=== PATIENT | female | born 1930 | race Caucasian/White ===

== ENCOUNTER 2018-03-08 18:53 | Inpatient (IN) | payer OTHER, BC ==
--- NOTE | 2018-03-08 18:59 | PDOC ---
History of Present Illness - General Chief Complaint: Respiratory Distress Stated Complaint: SICK Time Seen by Provider: 03/08/18 18:56 - History of Present Illness Initial Comments: 03/08/18 21:39 88 yo F w a hx of AFIb, HTN, hypothyroidism was sent here from [facility] with SOB. Per EMS - she was satting at 65% when they first arrived. EMS put her in CPAP and when she came into the ED her Sat was up to 90% . She was immediately placed on Bipap. Her Sat went up to 100% within the first half hour she was here. She says she does not know what happened to her she just became short of breath this morning. She endorses a recent cough for the past two days productive of whitish sputum. She denies any recent fevers, chills, or infections. She denies any chest pain, palpitations or lightheadedness. She denies any dysuria, frequency, urgency, or hesitancy. 03/08/18 21:44 Past History - Past Medical History Allergies/Adverse Reactions: Allergies Allergy/AdvReac Type Severity Reaction Status Date / Time No Known Allergies Allergy Verified 03/08/18 18:55 Home Medications: Ambulatory Orders Acetaminophen 650 mg PO QID PRN 03/08/18 Amlodipine Besylate [Norvasc -] 5 mg PO DAILY 03/08/18 Ascorbate Calcium [Vitamin C] 500 mg PO DAILY 03/08/18 Aspirin 81 mg PO DAILY 03/08/18 Cholecalciferol (Vitamin D3) [Vitamin D3] 1,000 unit PO DAILY 03/08/18 Levothyroxine [Synthroid -] 25 mcg PO DAILY 03/08/18 Lorazepam 0.5 mg PO BID 03/08/18 Losartan Potassium [Cozaar] 100 mg PO DAILY 03/08/18 Metoprolol Tartrate [Lopressor] 100 mg PO DAILY 03/08/18 Mirtazapine 7.5 mg PO HS 03/08/18 Multivitamin [One Daily] 1 tab PO DAILY 03/08/18 Vit A/Vitamin D3/E/Aloe V/Zinc [Periguard Ointment] 100 gm TP BID 03/08/18 Zolpidem Tartrate [Ambien] 5 mg PO HS 03/08/18 Review of Systems - Review of Systems Comments:: 03/08/18 21:47 RESPIRATORY: Positive: Productive cough, shortness of breath Absent: dyspnea with exertion, orthopnea, wheezing, stridor, hemoptysis CONSTITUTIONAL: Absent: fever, chills, diaphoresis, generalized weakness, malaise, loss of appetite HEENT: Absent: rhinorrhea, nasal congestion, throat pain, throat swelling, difficulty swallowing, mouth swelling, ear pain, eye pain, visual Changes CARDIOVASCULAR: Absent: chest pain, syncope, palpitations, irregular heart rate, lightheadedness , peripheral edema GASTROINTESTINAL: Absent: abdominal pain, abdominal distension, nausea, vomiting, diarrhea, constipation, melena, hematochezia GENITOURINARY: Absent: dysuria, frequency, urgency, hesitancy, hematuria, flank pain, genital pain MUSCULOSKELETAL: Absent: myalgia, arthralgia, joint swelling SKIN: Absent: rash, itching, pallor HEMATOLOGIC/IMMUNOLOGIC: Absent: easy bleeding, easy bruising, lymphadenopathy, frequent infections ENDOCRINE: Absent: unexplained weight gain, unexplained weight loss, heat intolerance, cold intolerance NEUROLOGIC: Absent: headache, focal weakness or paresthesias, dizziness, unsteady gait, seizure, mental status changes, bladder or bowel incontinence PSYCHIATRIC: Absent: anxiety, depression, suicidal or homicidal ideation, hallucinations. *Physical Exam - Physical Exam Comments: 03/08/18 21:48 PULMONARY: On presentation the patient had diffuse rales throughout both lung tai. 2 hours later I appreciated crackles on the R middle and lower lobes. No wheezing or rhonchi. GENERAL: Patient is awake and alert but in significant respiratory distress, HEENT: Normocephalic, atraumatic. PERRLA, EOMI. No conjunctival pallor. Sclera are non- icteric. Moist mucous membranes. Oropharynx is clear. NECK: Supple. Full ROM. No JVD. No thyromegaly. No lymphadenopathy. CARDIOVASCULAR: Regular rate and rhythm. No murmurs, rubs, or gallops. Distal pulses are 2+ and symmetric. ABDOMINAL: Soft. Non-tender. Non-distended. No rebound or guarding. No organomegaly. Normoactive bowel sounds. MUSCULOSKELETAL Normal range of motion at all joints. No bony deformities or tenderness. No CVA tenderness. EXTREMITIES: No cyanosis. No clubbing. No edema. No calf tenderness. SKIN: Warm and dry. Normal capillary refill. No rashes. No jaundice. NEUROLOGICAL: Alert, awake, appropriate. Cranial nerves 2-12 intact. Normal speech. PSYCHIATRIC: Cooperative. Good eye contact. Appropriate mood and affect. ED Treatment Course - LABORATORY CBC & Chemistry Diagram: 03/08/18 19:05 03/08/18 19:05 Medical Decision Making - Medical Decision Making 03/08/18 21:51 88 yo F w a hx of AFIb, HTN, hypothyroidism presented with significant respiratory distress. originally satted at 65% - went up to 90% with CPAP then up to 100% on bipap in the ER. She received 1 duo neb in the ER. White count is elevated to 23.5. trop is elevated to 1.11 We suspect she has a R sided PNA. Starting her on Abx here in the ER. Also gave her 20 of lasix DD includes but not limited to: CHF, ACS, COPD, PNA Plan: EKG, ABG, re-assess. Patient will be admitted 03/08/18 21:54 03/08/18 21:56 *DC/Admit/Observation/Transfer Diagnosis at time of Disposition: Pneumonia - Discharge Dispostion Condition at time of disposition: Guarded Decision to Admit order: Yes - Referrals Referrals: Steff Nation MD [Primary Care Provider] - - Patient Instructions - Post Discharge Activity
--- NOTE | 2018-03-08 19:06 | PDOC ---
Attending Attestation - Resident Resident Name: JanuarykrystleCarlosEndy - ED Attending Attestation I have performed the following: I have examined & evaluated the patient, The case was reviewed & discussed with the resident, I agree w/resident's findings & plan, Exceptions are as noted - HPI HPI: 03/08/18 19:06 Agree with residents HPI - Physicial Exam PE: 03/08/18 19:06 Agree with residents PE - Medical Decision Making 03/08/18 19:44 88 years old past medical history history significant for CVA, A. fib, hypertension presents to the emergency department from senior living in respiratory distress. Upon EMS arrival patient was satting 65 presents started on CPAP History Limited secondary to respiratory distress patient is DNR/DNI. Patient started on BiPAP upon arrival oxygenation has improved to 90%. Sepsis workup initiated chest x-ray pending dual nebs ordered Based on chest x-ray results further management required physical examination consistent with rales bilaterally differential diagnosis includes CHF as pneumonia Dr. Gutierrez to follow up labs, xrays, reasses, and dispo
[2018-03-08] MEDS ORDERED: ALBUTEROL SO4 2.5/IPRATROPIUM 0.5 INH SOL 3 ML VIAL.NEB. NEB ONE ×2 (19:18→19:36)
[2018-03-08 19:19] VITALS: BMI 18.8
[2018-03-08 19:27] LABS: BASO % 1.4 % (0-2.0); EOS % 3.2 % (0-4.5); HEMATOCRIT 45.5 % (32.4-45.2); HEMOGLOBIN 14.9 GM/dL (10.7-15.3); LYMPH % 22.8 % (8-40); MCH 34.2 pg (25.7-33.7); MCHC 32.7 g/dl (32.0-36.0); MEAN CELL VOLUME 104.8 fl (80-96); MEAN PLT VOLUME 8.2 fl (7.5-11.1); MONO % 3.8 % (3.8-10.2); NEUT % 68.8 % (42.8-82.8); RBC 4.35 M/mm3 (3.60-5.2); RDW 14.7 % (11.6-15.6); WHITE BLOOD COUNT 23.5 K/mm3 (4.0-10.0)
[2018-03-08 20:04] LABS: INR 1.11 (0.83-1.09); PROTHROMBIN TIME (PATIENT) 12.5 SEC (9.7-13.0)
[2018-03-08 20:07] LABS: ACTIVATED PTT 37.3 SECONDS (25.2-36.5)
[2018-03-08 20:11] LABS: ALBUMIN 3.7 g/dl (3.4-5.0); ANION GAP 11 MMOL/L (8-16); BLOOD UREA NITROGEN 20 mg/dL (7-18); CALCIUM 8.7 mg/dL (8.5-10.1); CHLORIDE 104 mmol/L (98-107); CO2 23 mmol/L (21-32); GLUCOSE,RANDOM 228 mg/dL (74-106); POTASSIUM 5.6 mmol/L (3.5-5.1); SGOT/AST 37 U/L (15-37); SODIUM 138 mmol/L (136-145)
[2018-03-08 20:18] LABS: ALK PHOS 135 U/L (45-117); BILIRUBIN,TOTAL 0.5 mg/dL (0.2-1.0); SGPT/ALT 23 U/L (13-61); TOT PROT 7.4 g/dl (6.4-8.2)
[2018-03-08] MEDS ORDERED: FUROSEMIDE 40 MG/4 ML INJECTABLE VIAL IVPUSH ONE (20:20)
[2018-03-08] MEDS ORDERED: VANCOMYCIN 1,250 MG in DEXTROSE 5%-WATER - 250 ML IVPB ONE (20:20)
[2018-03-08] MEDS ORDERED: ASPIRIN 81 MG CHEWABLE TABLETS PO ONE (20:22)
[2018-03-08] MEDS ORDERED: PIPERACILLIN/TAZOB 2.25 GM 2.25 GM in DEXTROSE 5%-WATER - 50 ML IVPB ONE (20:22)
[2018-03-08] MEDS ORDERED: PIPERACILLIN/TAZOBACTAM 2.25 GM VIAL IVPB ONE (20:39)
[2018-03-08] MEDS ORDERED: FUROSEMIDE 40 MG/4 ML INJECTABLE VIAL ONE (20:40)
[2018-03-08] MEDS ORDERED: ASPIRIN 81 MG CHEWABLE TABLETS ONE (20:40)
--- NOTE | 2018-03-08 20:51 | PN ---
Teaching Attending Note Name of Resident: Shari Strickland ATTENDING PHYSICIAN STATEMENT I saw and evaluated the patient. I reviewed the resident's note and discussed the case with the resident. I agree with the resident's findings and plan as documented. SUBJECTIVE: Patient is an 88 year old [facility] resident with past medical history history significant for CVA, polycythemia vera, A. fib and hypertension who presents to the ER with respiratory distress. Upon EMS arrival patient's O2 saturation was 65% and she was on CPAP. Patient started on BiPAP upon arrival in the ER and oxygenation has improved to 90%. She also noted left leg swelling that started 2 days ago. OBJECTIVE: In respiratory distress Vital Signs Period Temp Pulse Resp BP Sys/Stephens Pulse Ox Last 24 Hr 70-89 22-30 144-150/100-118 99-100 HEENT: No Jaundice, eye redness or discharge, PERRLA, EOMI. Normocephalic, atraumatic. External ears are normal and hearing is grossly intact. No nasal discharge. Neck: Supple, nontender. No palpable adenopathy or thyromegaly. No JVD Chest: Good effort. Coarse bibasilar crackles (R>L). Heart: Regular. No S3, rub or murmur Abdomen: Not distended, soft, nontender and no HSM. No rebound or guarding. Normoactive bowel sounds. Ext: Peripheral pulses intact. Left leg edema. Skin: Warm and dry. No petechiae or rash. Leg and arm ecchymosis. Neuro: Alert. Oriented x3. CN 2-12 grossly intact. Sensation grossly intact in all four extremities and DTR are symmetric. Current Medications Generic Name Dose Route Start Last Admin Trade Name Freq PRN Reason Stop Dose Admin Vancomycin HCl 1,250 mg/ 250 mls @ 250 mls/2 hr 03/08/18 20:20 Dextrose IVPB 03/08/18 22:19 ONCE ONE Protocol Piperacillin Sod/Tazobactam 50 mls @ 100 mls/hr 03/08/18 20:22 Sod 2.25 gm/ Dextrose IVPB 03/08/18 20:51 ONCE ONE Protocol Home Medications Medication Instructions Recorded Acetaminophen 650 mg PO QID PRN 03/08/18 Amlodipine Besylate [Norvasc -] 5 mg PO DAILY 03/08/18 Ascorbate Calcium [Vitamin C] 500 mg PO DAILY 03/08/18 Aspirin 81 mg PO DAILY 03/08/18 Cholecalciferol (Vitamin D3) 1,000 unit PO DAILY 03/08/18 [Vitamin D3] Levothyroxine [Synthroid -] 25 mcg PO DAILY 03/08/18 Lorazepam 0.5 mg PO BID 03/08/18 Losartan Potassium [Cozaar] 100 mg PO DAILY 03/08/18 Metoprolol Tartrate [Lopressor] 100 mg PO DAILY 03/08/18 Mirtazapine 7.5 mg PO HS 03/08/18 Multivitamin [One Daily] 1 tab PO DAILY 03/08/18 Vit A/Vitamin D3/E/Aloe V/Zinc 100 gm TP BID 03/08/18 [Periguard Ointment] Zolpidem Tartrate [Ambien] 5 mg PO HS 03/08/18 Abnormal Lab Results 03/08/18 03/08/18 03/08/18 19:05 19:05 19:05 WBC 23.5 H Hct 45.5 H MCV 104.8 H MCH 34.2 H Plt Count 927 H Absolute Neuts (auto) 16.1 H INR 1.11 H PTT (Actin FS) 37.3 H Potassium 5.6 H BUN 20 H Random Glucose 228 H Lactic Acid Alkaline Phosphatase 135 H Troponin I 03/08/18 03/08/18 19:05 19:06 WBC Hct MCV MCH Plt Count Absolute Neuts (auto) INR PTT (Actin FS) Potassium BUN Random Glucose Lactic Acid 3.7 H* Alkaline Phosphatase Troponin I 1.11 H* ASSESSMENT AND PLAN: 1. Sepsis due to ?atypical pneumonia - Sepsis workup done but UA still pending. Will get urine legionella antigen and trend lactic acid level. Treat possible HCAP with Vancomycin, zosyn and azithromycin. CXR shows rotation/scoliosis; osteopenia, cardiomegaly, poor inspiration, cardiomegaly, pacemaker, and pulmonary congestion. Withhold aggressive IV NS or lasix pending ECHO. Get CTPA to rule out PE, left leg doppler. Elevated troponin with nonspecific T wave changes - rule out ACS on telemetry - ?led to flash pulmonary edema. Consult hematology - thrombocytosis - has polycythemia vera. Hyperkalemia likely spurious due to thrombocytosis - get simultaneous serum and "plasma" K level to confirm. Check with NH whether she is on any medication for DM - implement sliding scale insulin regimen. Unclear why she is not on any anticoagulation for paroxysmal Afib. 2. DVT prophylaxis - Lovenox 40 mg SQ q 24 hours. 3. Advance directives - DNR/DNI
[2018-03-08 21:52] LABS: ANISOCYTOSIS 1+; MACROCYTOSIS 1+; PLATELET ESTIMATE SIGNIFICANT INCREASE
[2018-03-08 21:55] LABS: PLATELET COUNT 927 K/MM3 (134-434)
[2018-03-08 22:04] LABS: ARTERIAL BLD GAS O2 SATURATION 96.4 % (90-98.9); ARTERIAL BLOOD GAS BASE EXCESS 0.7 meq/l (-2-2); ARTERIAL BLOOD GAS PCO2 45.6 mmHg (35-45); ARTERIAL BLOOD GAS PO2 87.4 mmHg (68-100); ARTERIAL BLOOD GAS pH 7.37 (7.35-7.45); CARBOXYHEMOGLOBIN 1.6 gm% (0.5-2.0)
[2018-03-08 22:05] LABS: ALLENS TEST POSITIVE
[2018-03-09 00:33] LABS: URINE APPEARANCE CLEAR; URINE BILIRUBIN NEGATIVE (<2.0 mg/dL); URINE COLOR STRAW; URINE GLUCOSE (UA) NEGATIVE (NEGATIVE); URINE KETONE NEGATIVE (NEGATIVE); URINE LEUK ESTERASE NEGATIVE (NEGATIVE); URINE NITRITE NEGATIVE (NEGATIVE); URINE PROTEIN NEGATIVE (NEGATIVE); URINE UROBILINOGEN NEGATIVE mg/dL (0.2-1.0)
--- NOTE | 2018-03-09 00:43 | HP ---
CHIEF COMPLAINT: SOB SON: Eduardo Lowe [phone] PCP: Dr. Damian HISTORY OF PRESENT ILLNESS: 88 y/o Female resident of [facility], with PMHx of AFib, HTN, PVD, Cerebral infarction (patient is unsure when) was BIBEMS for SOB. Patient woke this morning feeling her normal self, without any noticeable over night events. Patient was able to tolerate her morning meal without difficult. At some point during the morning hours, patient started to feel shortness of breath. She noticed the SOB while sitting down but is not sure if it came on all of a sudden or if it was progressive. This is the first time she has felt SOB; She normally ambulates around the home and does not experience any dyspnea or exertion. Throughout the day, the SOB continued to worsen and patient additionally experienced a cough productive of clear/white phlegm which prompted her to visit the ED. Patient is normally able to sleep lying flat, does not require home O2 and does not wear a bipap/cpap at night. She denies any recent fevers, chills, chest pain/tightness/pressure, nausea, vomiting, diarrhea. Patient has a hx of chronic constipation. She denies any other sick contacts at the long term. She does not recall any recent medication changes, recent steroid use and has not visited her PCP in many months. I spoke with her Evening nurse Eduardo at [facility] who says the patient had some weakness with maneuvering her wheelchair around 6pm this evening. When he went to help the patient, she was cool, clammy, and a bit confused not making sense with her speech. Vitals at that time were 180/107, HR 80, O2 sats at 64%. He believed it was in part due to a possible panic attack, as patient missed her morning dose of Ativan however the ovens supervisor decided to send her to the ED. 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 PAST SURGICAL HISTORY: Appendix Cardiac pacemaker placement Social History: Smoking: Denies currently; for < 1 year in her 20's Alcohol: Denies currently; Occasionally in her 20's Drugs: Denies Family History: Denies Allergies No Known Allergies Allergy (Verified 03/08/18 18:55) HOME MEDICATIONS: Home Medications Medication Instructions Recorded Acetaminophen 650 mg PO QID PRN 03/08/18 Amlodipine Besylate [Norvasc -] 5 mg PO DAILY 03/08/18 Ascorbate Calcium [Vitamin C] 500 mg PO DAILY 03/08/18 Aspirin 81 mg PO DAILY 03/08/18 Cholecalciferol (Vitamin D3) 1,000 unit PO DAILY 03/08/18 [Vitamin D3] Levothyroxine [Synthroid -] 25 mcg PO DAILY 03/08/18 Lorazepam 0.5 mg PO BID 03/08/18 Losartan Potassium [Cozaar] 100 mg PO DAILY 03/08/18 Metoprolol Tartrate [Lopressor] 100 mg PO DAILY 03/08/18 Mirtazapine 7.5 mg PO HS 03/08/18 Multivitamin [One Daily] 1 tab PO DAILY 03/08/18 Vit A/Vitamin D3/E/Aloe V/Zinc 100 gm TP BID 03/08/18 [Periguard Ointment] Zolpidem Tartrate [Ambien] 5 mg PO HS 03/08/18 REVIEW OF SYSTEMS CONSTITUTIONAL: Absent: fever, chills, diaphoresis, generalized weakness, malaise, loss of appetite, weight change HEENT: Absent: rhinorrhea, nasal congestion, throat pain, throat swelling, difficulty swallowing, mouth swelling, ear pain, eye pain, visual changes CARDIOVASCULAR: Present: peripheral edema Absent: chest pain, syncope, palpitations, irregular heart rate, lightheadedness RESPIRATORY: Present: cough, shortness of breath, Absent: dyspnea with exertion, orthopnea, wheezing, stridor, hemoptysis GASTROINTESTINAL: Present: chronic constipation, Absent: abdominal pain, abdominal distension, nausea, vomiting, diarrhea, melena , hematochezia GENITOURINARY: Absent: dysuria, frequency, urgency, hesitancy, hematuria, flank pain, genital pain MUSCULOSKELETAL: Absent: myalgia, arthralgia, joint swelling, back pain, neck pain SKIN: Absent: rash, itching, pallor HEMATOLOGIC/IMMUNOLOGIC: Absent: easy bleeding, easy bruising, lymphadenopathy, frequent infections ENDOCRINE: Absent: unexplained weight gain, unexplained weight loss, heat intolerance, cold intolerance NEUROLOGIC: Absent: headache, focal weakness or paresthesias, dizziness, unsteady gait, seizure, mental status changes, bladder or bowel incontinence PSYCHIATRIC: Absent: anxiety, depression, suicidal or homicidal ideation, hallucinations. PHYSICAL EXAMINATION Vital Signs - 24 hr 03/08/18 03/08/18 03/08/18 18:58 19:12 19:50 Pulse Rate 89 Pulse Rate [ Apical] Respiratory 30 H Rate Blood Pressure 150/100 Blood Pressure [Right Arm] O2 Sat by Pulse 100 99 100 Oximetry (%) 03/08/18 03/08/18 03/08/18 20:05 20:53 21:39 Pulse Rate Pulse Rate [ 70 84 Apical] Respiratory 22 28 H Rate Blood Pressure Blood Pressure 144/118 131/69 [Right Arm] O2 Sat by Pulse 100 100 98 Oximetry (%) GENERAL: Awake, alert, and fully oriented, in no acute distress, lying with the head of the bed elevated HEAD: NCAT EYES: PERRLA, EOMI THROAT: Oropharynx clear without exudates. Moist mucous membranes. NECK: No JVD LUNGS: Crackles at the bases, No accessory muscle use, on 15L via NC HEART: Regular rate and rhythm, normal S1 and S2 without murmur. ABDOMEN: Healed midline surgical scar, Soft, nontender, not distended, normoactive bowel sounds, no guarding, no rebound MUSCULOSKELETAL: No CVA tenderness. BACK: No sacral decubitis ulcers noted LOWER EXTREMITIES: 2+ pulses, No calf tenderness. 2+ pitting edema on the Left. Multiple ecchymosis noted over anterior, B/L LE patient says are "due to the sun." NEUROLOGICAL: Cranial nerves II-XII intact. Normal speech. Gross sensation intact in all four extremities. 5/5 muscle strength in the Upper extremities, 4/ 5 muscle strength in the lower extremities PSYCHIATRIC: Cooperative. Good eye contact. Appropriate mood and affect. Laboratory Results - last 24 hr 03/08/18 03/08/18 03/08/18 19:05 19:05 19:05 WBC 23.5 H RBC 4.35 Hgb 14.9 Hct 45.5 H MCV 104.8 H MCH 34.2 H MCHC 32.7 RDW 14.7 Plt Count 927 H MPV 8.2 Absolute Neuts (auto) 16.1 H Total Counted 100 Neutrophils % 68.8 Neutrophils % (Manual) 70.0 Band Neutrophils % 25.0 Lymphocytes % 22.8 Lymphocytes % (Manual) 3.0 L Monocytes % 3.8 Monocytes % (Manual) 2 L Eosinophils % 3.2 Basophils % 1.4 Nucleated RBC % 0 Platelet Estimate Significant increase Platelet Comment No clumping noted Anisocytosis 1+ Macrocytosis 1+ PT with INR 12.50 INR 1.11 H PTT (Actin FS) 37.3 H Anticoagulation Therapy Puncture Site Patient Temperature ABG pH ABG pCO2 at Pt Temp ABG pO2 at Pt Temp ABG HCO3 ABG O2 Sat (Measured) ABG O2 Content ABG Base Excess Arnold Test Carboxyhemoglobin Methemoglobin O2 Delivery Device Oxygen Flow Rate Vent Mode Vent Rate Mechanical Rate PEEP Pressure Support Vent Sodium 138 Potassium 5.6 H Chloride 104 Carbon Dioxide 23 Anion Gap 11 BUN 20 H Creatinine 1.0 Creat Clearance w eGFR 52.33 Random Glucose 228 H Lactic Acid Calcium 8.7 Total Bilirubin 0.5 AST 37 ALT 23 Alkaline Phosphatase 135 H Troponin I Total Protein 7.4 Albumin 3.7 03/08/18 03/08/18 03/08/18 19:05 19:06 21:04 WBC RBC Hgb Hct MCV MCH MCHC RDW Plt Count MPV Absolute Neuts (auto) Total Counted Neutrophils % Neutrophils % (Manual) Band Neutrophils % Lymphocytes % Lymphocytes % (Manual) Monocytes % Monocytes % (Manual) Eosinophils % Basophils % Nucleated RBC % Platelet Estimate Platelet Comment Anisocytosis Macrocytosis PT with INR INR PTT (Actin FS) Anticoagulation Therapy Cancelled Puncture Site Cancelled Patient Temperature Cancelled ABG pH Cancelled ABG pCO2 at Pt Temp Cancelled ABG pO2 at Pt Temp Cancelled ABG HCO3 Cancelled ABG O2 Sat (Measured) Cancelled ABG O2 Content Cancelled ABG Base Excess Cancelled Arnold Test Cancelled Carboxyhemoglobin Cancelled Methemoglobin Cancelled O2 Delivery Device Cancelled Oxygen Flow Rate Cancelled Vent Mode Cancelled Vent Rate Cancelled Mechanical Rate Cancelled PEEP Cancelled Pressure Support Vent Cancelled Sodium Potassium Chloride Carbon Dioxide Anion Gap BUN Creatinine Creat Clearance w eGFR Random Glucose Lactic Acid 3.7 H* Calcium Total Bilirubin AST ALT Alkaline Phosphatase Troponin I 1.11 H* Total Protein Albumin 03/08/18 21:30 WBC RBC Hgb Hct MCV MCH MCHC RDW Plt Count MPV Absolute Neuts (auto) Total Counted Neutrophils % Neutrophils % (Manual) Band Neutrophils % Lymphocytes % Lymphocytes % (Manual) Monocytes % Monocytes % (Manual) Eosinophils % Basophils % Nucleated RBC % Platelet Estimate Platelet Comment Anisocytosis Macrocytosis PT with INR INR PTT (Actin FS) Anticoagulation Therapy No Result Required. Puncture Site Right radial Patient Temperature ABG pH 7.37 ABG pCO2 at Pt Temp 45.6 H ABG pO2 at Pt Temp 87.4 ABG HCO3 25.8 ABG O2 Sat (Measured) 96.4 ABG O2 Content 19.3 ABG Base Excess 0.7 Arnold Test Positive Carboxyhemoglobin 1.6 Methemoglobin 1.8 H O2 Delivery Device N/c Oxygen Flow Rate 4lpm Vent Mode No Result Required. Vent Rate No Result Required. Mechanical Rate No Result Required. PEEP Pressure Support Vent No Result Required. Sodium Potassium Chloride Carbon Dioxide Anion Gap BUN Creatinine Creat Clearance w eGFR Random Glucose Lactic Acid Calcium Total Bilirubin AST ALT Alkaline Phosphatase Troponin I Total Protein Albumin ASSESSMENT/PLAN: 88 y/o Female resident of [facility], with PMHx of AFib, HTN, PVD, Cerebral infarction (patient is unsure when) was BIBEMS for SOB. On PE, was found to have Crackles at the lung bases and Left lower extremity 2+ pitting edema. On Labs, was found to have a WBC 23.5, Hct 45.5, MCV 104.8, Plt 927, K+ 5.6, BG 228, Lactic acid 3.7, Troponin 1.11. 1. Sepsis - Unclear etiology, Likely Atypical pneumonia - Rectal Temperature 99.6 - CXR significant for Rotation/scoliosis, poor inspiration, pulmonary congestion - UA, Urine legionella and strep antigen pending - Blood cultures ordered - Lactic Acid 3.7, Trend - Continue Vancomycin, Zosyn, Add on Azithromycin - Given one dose Lasix 20 in the ED; Hold further Lasix or IVF pending Echo 2. R/O ACS - Initial EKG shows T Wave inversions in Leads 1, aVL, V1, V2 - Repeat EKG concerning for ST segment changes - Initial Troponin 1.11, Repeat Trop 2.53 - Echo ordered - ED staff alerted Cardiology training and development professional (Dr. Antoine), Pending his recommendations 3. R/O DVT/PE - LE Duplex (2 Legs) ordered - CTA ordered 4. Elevated BG - Spoke with Nurse Clark at [facility] who says patient is not a diabetic and does not take any meds for DM - BGM ISS ACHS - A1c ordered 5. Hx of Polycythemia Vera - Plt 927, Hct 45.5 - Currently on Hydroxyurea 500mg - Hematology (Dr. Mendez) consulted 6. Atrial Fibrillation - Continue home dose metoprolol - Currently not on AC, long term staff is not sure why 7. HTN - Continue home dose Amlodipine, Metoprolol, Losartan 8. FEN - PO Fluids - Hyperkalemia, Continue to monitor Lytes - Diabetic, Low sodium, Low cholesterol diet 9. PPx - DVT: Lovenox 40mg SQ Dispo: Admit to Tele Visit type - Emergency Visit Emergency Visit: Yes ED Registration Date: 03/08/18 Care time: The patient presented to the Emergency Department on the above date and was hospitalized for further evaluation of their emergent condition. - New Patient This patient is new to me today: Yes Date on this admission: 03/09/18 - Critical Care Critical Care patient: No Hospitalist Screening - Colonoscopy Questionnaire Colonoscopy Questionnaire: Colonoscopy Questionnaire - Patient: 50 - 75 years old and never had a screening colonoscopy: Unknown History of colon or rectal polyps, or CA: Unknown History of IBD, Crohn's disease or UC: Unknown History of abdominal radiation therapy as a child: Unknown - Relative: 1 with colon or rectal CA, or polyps at age 60 or younger: Unknown Colon or rectal CA diagnosed at age 45 or younger: Unknown Multiple relatives with colon or rectal CA: Unknown - Outcome: Screening Result: Negative Screen
[2018-03-09] MEDS ORDERED: VANCOMYCIN 1,000 MG in DEXTROSE 5%-WATER - 250 ML IVPB SCH ×2 (00:45→22:00)
[2018-03-09] MEDS ORDERED: PIPERACILLIN/TAZOB 4.5 GM 4.5 GM/100 ML BAG IVPB ONE (02:10)
[2018-03-09] MEDS ORDERED: PIPERACILLIN/TAZOB 4.5 GM 4.5 GM in DEXTROSE 5%-WATER 100 ML IVPB ONE (03:00)
[2018-03-09] MEDS ORDERED: MIRTAZAPINE 15 MG TABLET (FP) PO ONE (04:34)
[2018-03-09] MEDS ORDERED: METOPROLOL TARTRATE 25 MG TABLET (FP) PO ONE (05:37)
[2018-03-09] MEDS ORDERED: METOPROLOL TARTRATE 25 MG TABLET (FP) ONE (06:08)
[2018-03-09 06:34] LABS: BASO % 1.2 % (0-2.0); EOS % 0.8 % (0-4.5); HEMATOCRIT 39.1 % (32.4-45.2); HEMOGLOBIN 13.2 GM/dL (10.7-15.3); LYMPH % 4.9 % (8-40); MCH 34.5 pg (25.7-33.7); MCHC 33.8 g/dl (32.0-36.0); MEAN CELL VOLUME 101.9 fl (80-96); MEAN PLT VOLUME 7.5 fl (7.5-11.1); MONO % 4.4 % (3.8-10.2); NEUT % 88.7 % (42.8-82.8); PLATELET COUNT 552 K/MM3 (134-434); RBC 3.84 M/mm3 (3.60-5.2); RDW 14.4 % (11.6-15.6); WHITE BLOOD COUNT 21.8 K/mm3 (4.0-10.0)
--- NOTE | 2018-03-09 06:35 | PN ---
Progress Note (short form) - Note Progress Note: Contacted by ER for STEMI. Case reviewed in detail with ER resident (Deion Wright) and EMR reviewed. Pt with dementia from [facility], developed SOB at approximately 4pm on 03/08. Sent to ER where CXR showed bilateral infiltrates c/w pulm edema. ECG initially showed 0.[address] elevations in V1 and V2 with associated deep q waves in these leads, no reciprocal ST depressions. She had elevated lactate and troponin 1.1. was treated with IV lasix and sob resolved as of approximately 8 pm. Repeat troponin at 4am today came back at 2.5. Repeat EKG done shortly after that (4:54 am) showed worsening of prior ST elevations in V1/V2, with diffuse 1mm or less ST depressions. Pt was asymptomatic at that time. Repeat ECG at 5:52 am is back to appearance similar to initial ECG from last night, though lead V2 still with ST elevation slightly higher than baseline. Pt has never been here before and there is no baseline old ECG available. She is 88 yo with dementia, Afib history and prior stroke on ASA only, HTN, HPL and p. vera (per [place] chart, as per ER resident). She is also DNR/DNI as per Dr. Wright. wbc and PLTs (900) elevated. creatinine normal. They have placed a call to pt's son listed as medicare contact specialist, as pt is not capable of giving consent. He has not yet returned the call. I have placed a call to Dr. Griffin, professional skater for STEMI at [place] [employer], to review details, waiting for return call. I suspect pt's son would need to agree to temporarily rescind DNR for the procedure, in order to proceed with primary PCI. Addendum 7:28 am: spoke to son prakash who states pt has no h/o signif GI bleeding/other--AC deferred in past b/c falls at home. no more falls recently in [place]. he states she has good qual of life and recognition for events and for ppl, and he and she would want life-preserving/enhancing treatment like cath if we felt the risk of doing so were worth the expected benefit. 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 he feels that the ekg's are not diagnostic of STEMI, given q waves present in those leads, as well as brief/dynamic elevation which is resolving, and the very prompt resolution of her sx's with lasix. extremely likely this is a NSTEMI. however pt at high risk of having diffuse, complex multivessel CAD with increased complexity/risks of cath and uncertain benefit of limited PCI. additionally, if she has significant LV dysfunction, then the risks of the procedure go up significantly. furthermore, at her age and being female there is a non-insignificant risk of bleeding on DAPT necessitating premature discontinuation and leaving her exposed to stent thrombosis risk. that said, this needs to be weighed against her high LA score and the clinical picture which suggests a high-risk NSTEMI with increased risk of recurrent ischemic events. will repeat ECG now to confirm no worrisome ST elevation. will check echo today for LV function. will discuss R/B with cath attending and son and make final decision later. for now, will treat medically with UFH, aspirin, plavix, b-julianne
[2018-03-09 06:54] LABS: ALBUMIN 3.4 g/dl (3.4-5.0); ALK PHOS 99 U/L (45-117); ANION GAP 7 MMOL/L (8-16); BILIRUBIN,TOTAL 0.9 mg/dL (0.2-1.0); BLOOD UREA NITROGEN 19 mg/dL (7-18); CALCIUM 8.5 mg/dL (8.5-10.1); CHLORIDE 101 mmol/L (98-107); CO2 32 mmol/L (21-32); GLUCOSE,RANDOM 97 mg/dL (74-106); PHOSPHOROUS 3.8 mg/dL (2.5-4.9); SGOT/AST 29 U/L (15-37); SGPT/ALT 18 U/L (13-61); SODIUM 140 mmol/L (136-145); TOT PROT 6.4 g/dl (6.4-8.2)
[2018-03-09] MEDS ORDERED: HEPARIN NA (PORCINE) 5,000 UNITS/ML 1ML VIAL IVPUSH PRN ×2 (07:39)
[2018-03-09] MEDS: INSULIN SLIDING SCALE (NOVOLOG) 1 VIAL SQ SCH ×4 (07:40→22:34)
[2018-03-09] MEDS ORDERED: CLOPIDOGREL BISULFATE 75 MG TABLET (FP) PO ONE (07:41)
[2018-03-09] MEDS ORDERED: CLOPIDOGREL BISULFATE 300 MG TABLET PO ONE (07:43)
[2018-03-09] MEDS: LEVOTHYROXINE NA 25 MCG TABLET (FP) PO SCH (07:59)
[2018-03-09] MEDS ORDERED: HEPARIN INFUSION - 25,000 UNITS/500 ML INFUS.BAG IVPB ONE (08:25)
[2018-03-09] MEDS ORDERED: CLOPIDOGREL BISULFATE 300 MG TABLET ONE (08:26)
[2018-03-09] MEDS: HEPARIN - 25,000 UNIT in SODIUM CHLORIDE 495 ML IV SCH ×2 (08:34→14:41)
[2018-03-09] MEDS ORDERED: PIPERACILLIN/TAZOB 4.5 GM 4.5 GM in DEXTROSE 5%-WATER 100 ML IVPB SCH (09:00)
--- NOTE | 2018-03-09 09:12 | EKG ---
Test Reason : Blood Pressure : / mmHG Vent. Rate : 071 BPM Atrial Rate : 071 BPM P-R Int : 178 ms QRS Dur : 076 ms QT Int : 420 ms P-R-T Axes : 009 -56 077 degrees QTc Int : 456 ms NORMAL SINUS RHYTHM LEFT ANTERIOR FASCICULAR BLOCK SEPTAL INFARCT (CITED ON OR BEFORE 08-MAR-2018) ABNORMAL ECG WHEN COMPARED WITH ECG OF 09-MAR-2018 05:52, QUESTIONABLE CHANGE IN INITIAL FORCES OF SEPTAL LEADS Confirmed by YAAKOV DOWNS MD ([id number]) on 03/09/2018 9:12:13 AM Referred By: Confirmed By:YAAKOV DOWNS MD
--- NOTE | 2018-03-09 09:13 | EKG ---
Test Reason : Blood Pressure : / mmHG Vent. Rate : 098 BPM Atrial Rate : 098 BPM P-R Int : 168 ms QRS Dur : 076 ms QT Int : 354 ms P-R-T Axes : 031 -59 060 degrees QTc Int : 451 ms NORMAL SINUS RHYTHM WITH SINUS ARRHYTHMIA POSSIBLE LEFT ATRIAL ENLARGEMENT LEFT ANTERIOR FASCICULAR BLOCK POSSIBLE ANTEROSEPTAL INFARCT (CITED ON OR BEFORE 08-MAR-2018) ABNORMAL ECG WHEN COMPARED WITH ECG OF 08-MAR-2018 22:14, SERIAL CHANGES OF EVOLVING ANTEROSEPTAL INFARCT PRESENT Confirmed by YAAKOV DOWNS MD ([id number]) on 03/09/2018 9:13:02 AM Referred By: Confirmed By:YAAKOV DOWNS MD
--- NOTE | 2018-03-09 09:13 | EKG ---
Test Reason : Blood Pressure : / mmHG Vent. Rate : 087 BPM Atrial Rate : 087 BPM P-R Int : 164 ms QRS Dur : 076 ms QT Int : 384 ms P-R-T Axes : 002 -61 078 degrees QTc Int : 462 ms NORMAL SINUS RHYTHM POSSIBLE LEFT ATRIAL ENLARGEMENT LEFT ANTERIOR FASCICULAR BLOCK ANTEROSEPTAL INFARCT (CITED ON OR BEFORE 08-MAR-2018) ABNORMAL ECG WHEN COMPARED WITH ECG OF 09-MAR-2018 04:54, NO SIGNIFICANT CHANGE WAS FOUND Confirmed by YAAKOV DOWNS MD ([id number]) on 03/09/2018 9:12:39 AM Referred By: Confirmed By:YAAKOV DOWNS MD
--- NOTE | 2018-03-09 09:15 | EKG ---
Test Reason : Blood Pressure : / mmHG Vent. Rate : 074 BPM Atrial Rate : 074 BPM P-R Int : 168 ms QRS Dur : 080 ms QT Int : 416 ms P-R-T Axes : 017 -59 088 degrees QTc Int : 461 ms NORMAL SINUS RHYTHM WITH SINUS ARRHYTHMIA POSSIBLE LEFT ATRIAL ENLARGEMENT LEFT ANTERIOR FASCICULAR BLOCK LEFT VENTRICULAR HYPERTROPHY SEPTAL INFARCT , AGE UNDETERMINED T WAVE ABNORMALITY, CONSIDER LATERAL ISCHEMIA ABNORMAL ECG NO PREVIOUS ECGS AVAILABLE Confirmed by YAAKOV DOWNS MD ([id number]) on 03/09/2018 9:15:04 AM Referred By: Confirmed By:YAAKOV DOWNS MD
[2018-03-09] MEDS ORDERED: AZITHROMYCIN IVPB 500 MG in DEXTROSE 5%-WATER - 250 ML IVPB SCH (10:00)
[2018-03-09] MEDS ORDERED: METOPROLOL TARTRATE 50 MG TABLET (FP) PO SCH (10:00)
[2018-03-09] MEDS ORDERED: ENOXAPARIN NA (PORCINE) 40 MG/0.4 ML DISP.SYRIN SQ SCH (10:00)
[2018-03-09] MEDS ORDERED: ASPIRIN 81 MG CHEWABLE TABLETS PO SCH (10:00)
[2018-03-09] MEDS ORDERED: METOPROLOL TARTRATE 25 MG TABLET (FP) PO SCH ×2 (10:00)
[2018-03-09] MEDS ORDERED: VANCOMYCIN 1,000 MG in DEXTROSE 5%-WATER - 250 ML IVPB ONE (10:00)
--- NOTE | 2018-03-09 10:23 | PN ---
Progress Note, Physician History of Present Illness: pt seen/ examined in er chart reviewed comfortable denies cp, no distress - Current Medication List Current Medications: Active Medications Amlodipine Besylate (Norvasc -) 5 mg PO DAILY [facility] Ascorbic Acid (Vitamin C -) 500 mg PO DAILY [facility] Aspirin (Asa -) 81 mg PO DAILY [facility] Aspirin (Asa -) 325 mg PO DAILY [facility] Atorvastatin Calcium (Lipitor -) 80 mg PO HS [facility] Heparin Sodium (Porcine) (Heparin -) 1,000 unit IVPUSH PRN PRN PRN Reason: Heparin Heparin Sodium (Porcine) (Heparin -) 5,000 unit IVPUSH PRN PRN PRN Reason: Heparin Hydroxyurea (Hydrea -) 500 mg PO DAILY [facility] Azithromycin 500 mg/ Dextrose 250 mls @ 250 mls/hr IVPB DAILY [facility] Piperacillin Sod/Tazobactam (Sod 4.5 gm/ Dextrose) 100 mls @ 200 mls/hr IVPB Q6H-IV [facility]ANITA; Protocol Vancomycin HCl 1,000 mg/ (Dextrose) 250 mls @ 166.667 mls/hr IVPB ONCE ONE; Protocol Stop: 03/09/18 11:29 Vancomycin HCl 1,000 mg/ (Dextrose) 250 mls @ 166.667 mls/hr IVPB Q12H VANITA; Protocol Heparin Sodium (Porcine) 25, (000 unit/ Sodium Chloride) 500 mls @ 16 mls/hr IV TITR [facility]ANITA; Protocol Last Admin: 03/09/18 08:34 Dose: 800 unit/hr, 16 mls/hr Insulin Aspart (Novolog Vial Sliding Scale -) 1 vial SQ ACHS [facility]; Protocol Last Admin: 03/09/18 07:40 Dose: Not Given Levothyroxine Sodium (Synthroid -) 12.5 mcg PO DAILY@0700 [facility] Last Admin: 03/09/18 07:59 Dose: 12.5 mcg Losartan Potassium (Cozaar -) 100 mg PO DAILY [facility] Metoprolol Tartrate (Lopressor -) 50 mg PO BID [facility] Mirtazapine (Remeron -) 7.5 mg PO HS [facility] Multivitamins/Minerals/Vitamin C (Tab-A-Vit -) 1 tab PO DAILY [facility] Petrolatum (Sensi-Care Protective Ointment) 1 applic TP BID [facility] - Objective Vital Signs: Vital Signs Temperature 99.2 F 03/09/18 06:52 Pulse Rate 73 03/09/18 06:52 Respiratory Rate 18 03/09/18 06:52 Blood Pressure 102/60 03/09/18 06:52 O2 Sat by Pulse Oximetry (%) 98 03/09/18 06:52 Constitutional: Yes: No Distress, Calm Eyes: Yes: Conjunctiva Clear Neck: Yes: Supple, Other (no jvd) Respiratory: Yes: CTA Bilaterally Gastrointestinal: Yes: Soft Edema: No Neurological: Yes: Alert Labs: CBC, BMP 03/09/18 06:00 03/09/18 06:00 INR, PTT INR 1.11 (0.83-1.09) H 03/08/18 19:05 Problem List - Problems (1) Leukocytosis Code(s): D72.829 - ELEVATED WHITE BLOOD CELL COUNT, UNSPECIFIED (2) NSTEMI (non-ST elevated myocardial infarction) Code(s): I21.4 - NON-ST ELEVATION (NSTEMI) MYOCARDIAL INFARCTION (3) Pneumonia Code(s): J18.9 - PNEUMONIA, UNSPECIFIED ORGANISM (4) Polycythemia vera Code(s): D45 - POLYCYTHEMIA VERA Assessment/Plan discussed with cardiology/ i/d heparin drip. asa/ plavix abx f/u cultures/ wbc discussed with nursing staff also condition critical will follow cc time 35 min
[2018-03-09] MEDS: LOSARTAN POTASSIUM 50 MG TABLET (FP) PO SCH (10:35)
[2018-03-09] MEDS: ZINC OXIDE/PETROLATUM,WHITE 1 APPLIC OINT...G. TP SCH ×2 (10:35→22:00)
[2018-03-09] MEDS: amLODIPine BESYLATE 5 MG TABLET (FP) PO SCH (10:35)
[2018-03-09] MEDS: HYDROXYUREA 500 MG CAPSULE PO SCH (10:35)
[2018-03-09] MEDS: ASPIRIN 325 MG TABLET PO SCH (10:35)
[2018-03-09] MEDS: ASCORBIC ACID 500 MG TABLET (FP) PO SCH (10:35)
[2018-03-09] MEDS: MULTIVITAMINS (DAILY MVI) TABLET (FP) PO SCH (10:35)
[2018-03-09] MEDS: METOPROLOL TARTRATE 50 MG TABLET (FP) PO SCH ×2 (10:35→21:13)
[2018-03-09] MEDS ORDERED: VANCOMYCIN 1 GRAM (PRE-DOCKED) 1,000 MG/250 ML BAG IVPB ONE (10:49)
[2018-03-09 10:57] LABS: ANISOCYTOSIS 1+; MACROCYTOSIS 1+; PLATELET ESTIMATE INCREASED
--- NOTE | 2018-03-09 11:40 | PN ---
Progress Note (short form) - Note Progress Note: ID consult dictated imp/reccd CHF NSTEMI cannot r/o pneumonia polycythemia vera received vanco/zosyn/zithromax in ED switch to rocephin/zithromax check legionella urinary antigen check cultures if legionella urinary antigen is negative can d/c zithromax Problem List - Problems (1) NSTEMI (non-ST elevated myocardial infarction) Code(s): I21.4 - NON-ST ELEVATION (NSTEMI) MYOCARDIAL INFARCTION (2) CHF (congestive heart failure) Code(s): I50.9 - HEART FAILURE, UNSPECIFIED (3) Pneumonia Code(s): J18.9 - PNEUMONIA, UNSPECIFIED ORGANISM (4) Polycythemia vera Code(s): D45 - POLYCYTHEMIA VERA
[2018-03-09] MEDS ORDERED: INSULIN REGULAR HUMAN 100 UNITS/ML *VIAL ONE (11:50)
--- NOTE | 2018-03-09 11:57 | ECHO ---
Name: CRUZITO ROTHMAN Exam:Adult Echocardiogram Study Date: 03/09/2018 08:45 AM Age: 88 yrs Reason For Study: R/O CHF Height: 61 in Weight: 100 lb BSA: 1.4 m2 MMode/2D Measurements & Calculations IVSd: 0.95 cm Ao root diam: 2.8 cm LVIDd: 4.3 cm LA dimension: 4.5 cm LVIDs: 3.1 cm LVPWd: 0.90 cm EDV(Teich): 83.5 ml TAPSE: 2.5 cm ESV(Teich): 37.7 ml RV S Faizan: 14.8 cm/sec Doppler Measurements & Calculations MV E max faizan: 42.9 cm/sec Ao V2 max: 119.0 cm/sec MV A max faizan: 74.0 cm/sec Ao max P.7 mmHg MV E/A: 0.58 LV V1 max P.6 mmHg MR max faizan: 389.4 cm/sec LV V1 max: 81.4 cm/sec MR max P.7 mmHg TR max faizan: 235.0 cm/sec Med Peak E' Faizan: 3.0 cm/sec TR max P.2 mmHg Med E/e': 14.5 Lat Peak E' Faizan: 2.4 cm/sec Lat E/e': 17.8 Left Ventricle Left ventricular systolic function is severely reduced. Ejection Fraction = 30-35%. Akinesis of the a nterior wall, mid anteroseptum, apical anterior wall and apical inferior wall. Right Ventricle The right ventricle is grossly normal size. The right ventricular systolic function is grossly normal . Atria The left atrium is mildly dilated. Mitral Valve There is mild to moderate mitral annular calcification. There is no mitral valve stenosis. There is m ild mitral regurgitation. Tricuspid Valve The tricuspid valve is normal in structure and function. There is mild tricuspid regurgitation. Right ventricular systolic pressure is elevated at 30-40mmHg. Aortic Valve There is mild aortic sclerosis.;. No hemodynamically significant valvular aortic stenosis. No aortic regurgitation is present. Pulmonic Valve The pulmonic valve is not well seen, but is grossly normal. There is no pulmonic valvular stenosis. Great Vessels The aortic root is normal size. Pericardium/Pleura There is no pericardial effusion. Interpretation Summary Akinesis of the anterior wall, mid anteroseptum, apical anterior wall and apical inferior wall. Left ventricular systolic function is severely reduced. Ejection Fraction = 30-35%. The right ventricle is grossly normal size. The right ventricular systolic function is grossly normal. The left atrium is mildly dilated. There is mild to moderate mitral annular calcification. There is mild mitral regurgitation. There is mild tricuspid regurgitation. Right ventricular systolic pressure is elevated at 30-40mmHg. There is mild aortic sclerosis.; There is no pericardial effusion. MD Fan Anguiano 03/09/2018 11:57 AM
--- NOTE | 2018-03-09 11:57 | CON.CARD ---
Cardiology Consult (text) - Consultation Consultation Note: cc: sob hpi:88 f hx mild dementia, afib, ppm, hld, hypothyroid, sent from in for sob. Pt says she had been feeling well until earlier when she noticed sob. No cp, palps, dizzy loc pnd orthopnea le edema. Brought to ER and found to have nstemi with some dynamic st changes on ecg. Getting hep gtt, dapt. Feeling well now, no sob. pmh: per hpi psh: ppm social: no tob fam: nc ros: per hpi; no nvd fever, gib hematuria dysuria muscel pains TAYLOR meds: Home Medications Medication Instructions Recorded Acetaminophen 650 mg PO QID PRN 03/08/18 Amlodipine Besylate [Norvasc -] 5 mg PO DAILY 03/08/18 Ascorbate Calcium [Vitamin C] 500 mg PO DAILY 03/08/18 Aspirin 81 mg PO DAILY 03/08/18 Cholecalciferol (Vitamin D3) 1,000 unit PO DAILY 03/08/18 [Vitamin D3] Levothyroxine [Synthroid -] 12.5 mcg PO DAILY 03/08/18 Lorazepam 0.5 mg PO BID 03/08/18 Losartan Potassium [Cozaar] 100 mg PO DAILY 03/08/18 Metoprolol Tartrate [Lopressor] 100 mg PO DAILY 03/08/18 Mirtazapine 7.5 mg PO HS 03/08/18 Multivitamin [One Daily] 1 tab PO DAILY 03/08/18 Vit A/Vitamin D3/E/Aloe V/Zinc 100 gm TP BID 03/08/18 [Periguard Ointment] Zolpidem Tartrate [Ambien] 5 mg PO HS 03/08/18 Hydroxyurea [Hydrea -] 500 mg PO DAILY 03/09/18 pe: Vital Signs Period Temp Pulse Resp BP Sys/Stephens Pulse Ox Last 24 Hr 99.1 F-99.6 F 70-89 18-30 102-150/60-118 98-100 nad no jvd rrr s1s2 no mrg cta bl nl eff awake alert appropriate no jaundice diaphoresis pos dp pt no carotid bruits abd nt nd pos bs no le e/c/c Laboratory Last Values WBC 21.8 K/mm3 (4.0-10.0) H 03/09/18 06:00 RBC 3.84 M/mm3 (3.60-5.2) 03/09/18 06:00 Hgb 13.2 GM/dL (10.7-15.3) 03/09/18 06:00 Hct 39.1 % (32.4-45.2) 03/09/18 06:00 MCV 101.9 fl (80-96) H 03/09/18 06:00 MCH 34.5 pg (25.7-33.7) H 03/09/18 06:00 MCHC 33.8 g/dl (32.0-36.0) 03/09/18 06:00 RDW 14.4 % (11.6-15.6) 03/09/18 06:00 Plt Count 552 K/MM3 (134-434) H D 03/09/18 06:00 MPV 7.5 fl (7.5-11.1) 03/09/18 06:00 Absolute Neuts (auto) 19.4 K/mm3 (1.5-8.0) H 03/09/18 06:00 Total Counted 100 03/09/18 06:00 Neutrophils % 88.7 % (42.8-82.8) H D 03/09/18 06:00 Neutrophils % (Manual) 86.0 % (42.8-82.8) H 03/09/18 06:00 Band Neutrophils % 1.0 % 03/09/18 06:00 Lymphocytes % 4.9 % (8-40) L D 03/09/18 06:00 Lymphocytes % (Manual) 5.0 % (8-40) L D 03/09/18 06:00 Monocytes % 4.4 % (3.8-10.2) 03/09/18 06:00 Monocytes % (Manual) 8 % (3.8-10.2) D 03/09/18 06:00 Eosinophils % 0.8 % (0-4.5) 03/09/18 06:00 Basophils % 1.2 % (0-2.0) 03/09/18 06:00 Nucleated RBC % 0 % (0-0) 03/09/18 06:00 Platelet Estimate Increased 03/09/18 06:00 Platelet Comment No clumping noted 03/09/18 06:00 Anisocytosis 1+ 03/09/18 06:00 Macrocytosis 1+ 03/09/18 06:00 PT with INR 12.50 SEC (9.7-13.0) 03/08/18 19:05 INR 1.11 (0.83-1.09) H 03/08/18 19:05 PTT (Actin FS) 37.3 SECONDS (25.2-36.5) H 03/08/18 19:05 Anticoagulation Therapy No Result Required. 03/08/18 21:30 Puncture Site Right radial 03/08/18 21:30 Patient Temperature Cancelled 03/08/18 21:04 ABG pH 7.37 (7.35-7.45) 03/08/18 21:30 ABG pCO2 at Pt Temp 45.6 mmHg (35-45) H 03/08/18 21:30 ABG pO2 at Pt Temp 87.4 mmHg (68-100) 03/08/18 21:30 ABG HCO3 25.8 meq/L (22-26) 03/08/18 21:30 ABG O2 Sat (Measured) 96.4 % (90-98.9) 03/08/18 21:30 ABG O2 Content 19.3 % vol (15-22) 03/08/18 21:30 ABG Base Excess 0.7 meq/l (-2-2) 03/08/18 21:30 Arnold Test Positive 03/08/18 21:30 Carboxyhemoglobin 1.6 gm% (0.5-2.0) 03/08/18 21:30 Methemoglobin 1.8 % (0.4-1.5) H 03/08/18 21:30 O2 Delivery Device N/c 03/08/18 21:30 Oxygen Flow Rate 4lpm 03/08/18 21:30 Vent Mode No Result Required. 03/08/18 21:30 Vent Rate No Result Required. 03/08/18 21:30 Mechanical Rate No Result Required. 03/08/18 21:30 PEEP Cancelled 03/08/18 21:04 Pressure Support Vent No Result Required. 03/08/18 21:30 Sodium 140 mmol/L (136-145) 03/09/18 06:00 Potassium 4.0 mmol/L (3.5-5.1) 03/09/18 06:00 Plasma Potassium 3.8 mmol/L (3.5-5.1) 03/09/18 06:00 Chloride 101 mmol/L (98-107) 03/09/18 06:00 Carbon Dioxide 32 mmol/L (21-32) 03/09/18 06:00 Anion Gap 7 MMOL/L (8-16) L 03/09/18 06:00 BUN 19 mg/dL (7-18) H 03/09/18 06:00 Creatinine 1.0 mg/dL (0.55-1.3) 03/09/18 06:00 Creat Clearance w eGFR 52.33 (>60) 03/09/18 06:00 POC Glucometer 168.52953 UNITS (80-120) 03/09/18 11:44 Random Glucose 97 mg/dL (74-106) 03/09/18 06:00 Hemoglobin A1c % 4.8 % (4.2-6.3) 03/09/18 06:00 Lactic Acid 1.4 mmol/L (0.4-2.0) 03/09/18 04:00 Calcium 8.5 mg/dL (8.5-10.1) 03/09/18 06:00 Phosphorus 3.8 mg/dL (2.5-4.9) 03/09/18 06:00 Magnesium 2.0 mg/dL (1.8-2.4) 03/09/18 06:00 Total Bilirubin 0.9 mg/dL (0.2-1.0) 03/09/18 06:00 AST 29 U/L (15-37) 03/09/18 06:00 ALT 18 U/L (13-61) 03/09/18 06:00 Alkaline Phosphatase 99 U/L (45-117) 03/09/18 06:00 Troponin I 2.53 ng/ml (0.00-0.05) H* 03/09/18 03:57 B-Natriuretic Peptide 77148.35 pg/ml (5-450) H 03/09/18 06:35 Total Protein 6.4 g/dl (6.4-8.2) 03/09/18 06:00 Albumin 3.4 g/dl (3.4-5.0) 03/09/18 06:00 Urine Color Straw 03/09/18 00:10 Urine Appearance Clear 03/09/18 00:10 Urine pH 5.0 (5.0-8.0) 03/09/18 00:10 Ur Specific Soso 1.006 (1.001-1.035) 03/09/18 00:10 Urine Protein Negative (NEGATIVE) 03/09/18 00:10 Urine Glucose (UA) Negative (NEGATIVE) 03/09/18 00:10 Urine Ketones Negative (NEGATIVE) 03/09/18 00:10 Urine Blood Negative (NEGATIVE) 03/09/18 00:10 Urine Nitrite Negative (NEGATIVE) 03/09/18 00:10 Urine Bilirubin Negative (<2.0 mg/dL) 03/09/18 00:10 Urine Urobilinogen Negative mg/dL (0.2-1.0) 03/09/18 00:10 Ur Leukocyte Esterase Negative (NEGATIVE) 03/09/18 00:10 cta chest: no pe, +chf ecgs reviewed: initially show sr, nl intervals, mild yohannes anteriorly v1, v2. Most recent ecg this am improved, no further yohannes or st depres a/p:88 f hx mild dementia, afib, ppm, hld, hypothyroid, sent from in for sob. nstemi: -symptoms resolved, vs stable -st changes on ecg resolved -case was d/w interventionalist earlier and felt was NSTEMI and rec'd med management for now, possibly cath based on echo and clinical course -cont asa , plavix, hep gtt -monitor on tele -f/u echo -cont bb, statin sob, acute chf: -likely in setting of nstemi -hypoxia improved with iv lasix yesterday, will give another dose today and monitor resp status, cr, lytes -check echo afib: -in sr, cont bb -not on ac due to falls, has been on asa hld: -cont statin ppm: -outpt f/u
[2018-03-09] MEDS ORDERED: FUROSEMIDE 40 MG/4 ML INJECTABLE VIAL IVPUSH ONE (12:04)
--- NOTE | 2018-03-09 12:35 | CONS ---
DATE OF CONSULTATION: DATE OF DICTATION: 03/09/2018 HISTORY: This is an 88-year-old woman who is admitted from the intermediate. She has a past medical history of atrial fibrillation, hypertension, hypothyroidism. She suddenly became cold, clammy, and confused. She was noted to be extremely hypoxic. She was transferred to the emergency room. She was complaining of dizziness, shortness of breath, and a cough with white sputum. She was found to have positive troponin. She had a CTA that was negative for PE but notable for possible pulmonary venous congestion versus pneumonia. She had elevated BNP. She was found to have an elevated white count of 23,000. She carries a diagnosis of polycythemia vera, but given the white count, she had blood cultures drawn. She was given vancomycin. She was given piperacillin and tazobactam and Zithromax in the emergency room. She was seen by Cardiology, and she has been started on medications for her TN with heparin, aspirin, Plavix, and a beta-julianne. She denies any chest pain or shortness of breath. She is comfortable on 2 L. PAST MEDICAL HISTORY: Notable for history of atrial fibrillation, hypertension, hypothyroidism, polycythemia vera. She has a history of a CVA on the chart. The patient is unsure about this. In fact, she is unable to tell any of her medications. She carries a diagnosis of mild dementia and anxiety as well. PAST SURGICAL HISTORY: Notable for pacemaker. She is unaware if she has had an appendectomy, which is listed in her past history as well. SOCIAL HISTORY: She smoked for 1 year in her 20s. She has not smoked since. Social alcohol. No drug use. FAMILY HISTORY: She is . She lost her daughter at age 52 last year. Daughter of asthma. She [place], and a year ago her son moved her to [facility]. ALLERGIES: She has no known drug allergies. MEDICATIONS: Include amlodipine, vitamin C, aspirin, vitamin D, Synthroid, lorazepam, Cozaar, Lopressor, Remeron, and Ambien. REVIEW OF SYSTEMS: Notable that she has had a mild cough with white sputum for the last several weeks. She has some shortness of breath. She reports feeling much improved. PHYSICAL EXAMINATION: Vital Signs: Temperature 99.2, T-max 99.6, pulse 73, blood pressure 102/60, respiratory rate 18. She is saturating 98% on 4 L. HEENT: She is normocephalic. Her eyes are anicteric. Neck: Supple. Lungs: Crackles at both bases. Heart: Regular rate and rhythm. Abdomen: Soft and nontender. Extremities: She has a few bruises on her legs with some trace pretibial edema. There is no pedal edema. LABORATORY DATA: White count is 21.8 today, on admission 23.5, oochjksecm23.2, platelets of 552 and were 927 on admission. Her INR is 1.1. BUN 19, creatinine 1. LFTs are normal. Lactic acid on admission was 3.7, today is 1.4. Troponin is 2.53. BNP 27,099. CAT scan findings were as previously stated. She had duplex of her legs that show no evidence of DVT. In summary, this is an 88-year-old woman admitted with shortness of breath, cough, c hypoxia that is improved most consistent with CHF. She has evidence of a non-ST segment TN as well being managed by Cardiology. Cannot rule out pneumonia given the CAT scan findings as well as her elevated white count and cough so would continue to treat her for pneumonia at this time. She carries a diagnosis of polycythemia vera, which could be contributing to her leukocytosis as well. She received vancomycin, Zosyn, Zithromax in the emergency room. Switched to Rocephin, Zithromax. Would check a Legionella urinary antigen. Would check cultures. If the Legionella urinary antigen is negative, can stop the Zithromax. Further recommendations to follow. CELINE WATT M.D. [id number]
[2018-03-09] MEDS ORDERED: CEFTRIAXONE 1 GM in DEXTROSE 5%-WATER - 100 ML IVPB SCH (13:15)
[2018-03-09] MEDS ORDERED: CEFTRIAXONE 1 GM/50 ML BAG ONE (13:40)
--- NOTE | 2018-03-09 14:16 | CONSULT ---
Consultation: REQUESTING PROVIDER: CONSULT REQUEST: We have been asked to medically evaluate this patient for ( Polycythemia Vera). HISTORY OF PRESENT ILLNESS: Son at bed side to assist with her history. 88 y/o Female resident of [facility] was sent to the ED with the complaints of worsening shortness of breath at rest. As per the patient, SOB started yesterday associated with palpitations and cough producing whitish phelgm. Denies chest pain, abdominal pain, nausea, vomiting, headache, dizziness , tingling or numbness. States she has been feeling weak and tired since few days. Bowel/Bladder habit normal. Last BM was yesterday. Sleep/Appetite normal prior to her illness. 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 Social History: Smoking: Smoked <1 pack/day for about 20 yrs Alcohol: Occasionally, last drink a week ago on her birthday. Drugs: Denies Family History: Non contributory, no family h/o cancers. 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 REVIEW OF SYSTEMS: CONSTITUTIONAL: Absent: fever, chills, diaphoresis, generalized weakness, malaise, loss of appetite, weight change HEENT: Absent: rhinorrhea, nasal congestion, throat pain, throat swelling, difficulty swallowing, mouth swelling, ear pain, eye pain, visual changes CARDIOVASCULAR: Absent: chest pain, syncope, palpitations, irregular heart rate, lightheadedness , peripheral edema RESPIRATORY: Present: cough, shortness of breath, Absent: dyspnea with exertion, orthopnea, wheezing, stridor, hemoptysis GASTROINTESTINAL: Absent: abdominal pain, abdominal distension, nausea, vomiting, diarrhea, constipation, melena, hematochezia GENITOURINARY: Absent: dysuria, frequency, urgency, hesitancy, hematuria, flank pain, genital pain MUSCULOSKELETAL: Absent: myalgia, arthralgia, joint swelling, back pain, neck pain SKIN: Absent: rash, itching, pallor HEMATOLOGIC/IMMUNOLOGIC: Absent: easy bleeding, easy bruising, lymphadenopathy, frequent infections ENDOCRINE: Absent: unexplained weight gain, unexplained weight loss, heat intolerance, cold intolerance NEUROLOGIC: Absent: headache, focal weakness or paresthesias, dizziness, unsteady gait, seizure, mental status changes, bladder or bowel incontinence PSYCHIATRIC: Absent: anxiety, depression, suicidal or homicidal ideation, hallucinations. PHYSICAL EXAMINATION Vital Signs - 24 hr 03/08/18 03/08/18 03/08/18 18:58 19:12 19:50 Temperature Pulse Rate 89 Pulse Rate [ Apical] Respiratory 30 H Rate Blood Pressure 150/100 Blood Pressure [Right Arm] O2 Sat by Pulse 100 99 100 Oximetry (%) 03/08/18 03/08/18 03/08/18 20:05 20:53 21:39 Temperature Pulse Rate Pulse Rate [ 70 84 Apical] Respiratory 22 28 H Rate Blood Pressure Blood Pressure 144/118 131/69 [Right Arm] O2 Sat by Pulse 100 100 98 Oximetry (%) 03/09/18 03/09/18 03/09/18 00:03 05:52 06:52 Temperature 99.6 F 99.1 F 99.2 F Pulse Rate Pulse Rate [ 87 84 73 Apical] Respiratory 23 18 18 Rate Blood Pressure Blood Pressure 127/71 132/66 102/60 [Right Arm] O2 Sat by Pulse 100 98 Oximetry (%) 03/09/18 13:57 Temperature Pulse Rate Pulse Rate [ 84 Apical] Respiratory 22 Rate Blood Pressure Blood Pressure 105/75 [Right Arm] O2 Sat by Pulse 93 L Oximetry (%) GENERAL: Elderly female, Awake, alert, and fully oriented, in no acute distress. HEAD: Normal with no signs of trauma. EYES: EOM intact, no pallor or icterus. EARS, NOSE, THROAT: Ears normal. Moist mucous membranes. NECK: Supple. BREAST EXAM: No palpable mass. No axillary lymph nodes palpated. LUNGS: Breath sounds equal, clear to auscultation bilaterally. No wheezes, and no crackles. No accessory muscle use. HEART: Regular rate and rhythm, normal S1 and S2 without murmur, rub or gallop. ABDOMEN: Soft, nontender, not distended, normoactive bowel sounds, no guarding, no rebound, no masses. No hepatomegaly or splenomegaly. MUSCULOSKELETAL: Normal range of motion at all joints. No bony deformities or tenderness. No CVA tenderness. UPPER EXTREMITIES: 2+ pulses, warm, well-perfused. No cyanosis. No clubbing. Cap refill <2 seconds. No peripheral edema. LOWER EXTREMITIES: 2+ pulses, warm, well-perfused. No calf tenderness. No peripheral edema. NEUROLOGICAL: No facial droop. Normal speech. Gait not observed. PSYCHIATRIC: Cooperative. Good eye contact. Appropriate mood and affect. SKIN: Warm, dry, normal turgor, no rashes or lesions noted. Laboratory Results - last 24 hr 03/08/18 03/08/18 03/08/18 19:05 19:05 19:05 WBC 23.5 H RBC 4.35 Hgb 14.9 Hct 45.5 H MCV 104.8 H MCH 34.2 H MCHC 32.7 RDW 14.7 Plt Count 927 H MPV 8.2 Absolute Neuts (auto) 16.1 H Total Counted 100 Neutrophils % 68.8 Neutrophils % (Manual) 70.0 Band Neutrophils % 25.0 Lymphocytes % 22.8 Lymphocytes % (Manual) 3.0 L Monocytes % 3.8 Monocytes % (Manual) 2 L Eosinophils % 3.2 Basophils % 1.4 Nucleated RBC % 0 Platelet Estimate Significant increase Platelet Comment No clumping noted Anisocytosis 1+ Macrocytosis 1+ PT with INR 12.50 INR 1.11 H PTT (Actin FS) 37.3 H Anticoagulation Therapy Puncture Site Patient Temperature ABG pH ABG pCO2 at Pt Temp ABG pO2 at Pt Temp ABG HCO3 ABG O2 Sat (Measured) ABG O2 Content ABG Base Excess Arnold Test Carboxyhemoglobin Methemoglobin O2 Delivery Device Oxygen Flow Rate Vent Mode Vent Rate Mechanical Rate PEEP Pressure Support Vent Sodium 138 Potassium 5.6 H Plasma Potassium Chloride 104 Carbon Dioxide 23 Anion Gap 11 BUN 20 H Creatinine 1.0 Creat Clearance w eGFR 52.33 POC Glucometer Random Glucose 228 H Hemoglobin A1c % Lactic Acid Calcium 8.7 Phosphorus Magnesium Total Bilirubin 0.5 AST 37 ALT 23 Alkaline Phosphatase 135 H Troponin I B-Natriuretic Peptide Total Protein 7.4 Albumin 3.7 Urine Color Urine Appearance Urine pH Ur Specific [place] Urine Protein Urine Glucose (UA) Urine Ketones Urine Blood Urine Nitrite Urine Bilirubin Urine Urobilinogen Ur Leukocyte Esterase 03/08/18 03/08/18 03/08/18 19:05 19:06 21:04 WBC RBC Hgb Hct MCV MCH MCHC RDW Plt Count MPV Absolute Neuts (auto) Total Counted Neutrophils % Neutrophils % (Manual) Band Neutrophils % Lymphocytes % Lymphocytes % (Manual) Monocytes % Monocytes % (Manual) Eosinophils % Basophils % Nucleated RBC % Platelet Estimate Platelet Comment Anisocytosis Macrocytosis PT with INR INR PTT (Actin FS) Anticoagulation Therapy Cancelled Puncture Site Cancelled Patient Temperature Cancelled ABG pH Cancelled ABG pCO2 at Pt Temp Cancelled ABG pO2 at Pt Temp Cancelled ABG HCO3 Cancelled ABG O2 Sat (Measured) Cancelled ABG O2 Content Cancelled ABG Base Excess Cancelled Arnold Test Cancelled Carboxyhemoglobin Cancelled Methemoglobin Cancelled O2 Delivery Device Cancelled Oxygen Flow Rate Cancelled Vent Mode Cancelled Vent Rate Cancelled Mechanical Rate Cancelled PEEP Cancelled Pressure Support Vent Cancelled Sodium Potassium Plasma Potassium Chloride Carbon Dioxide Anion Gap BUN Creatinine Creat Clearance w eGFR POC Glucometer Random Glucose Hemoglobin A1c % Lactic Acid 3.7 H* Calcium Phosphorus Magnesium Total Bilirubin AST ALT Alkaline Phosphatase Troponin I 1.11 H* B-Natriuretic Peptide Total Protein Albumin Urine Color Urine Appearance Urine pH Ur Specific [place] Urine Protein Urine Glucose (UA) Urine Ketones Urine Blood Urine Nitrite Urine Bilirubin Urine Urobilinogen Ur Leukocyte Esterase 03/08/18 03/09/18 03/09/18 21:30 00:10 03:57 WBC RBC Hgb Hct MCV MCH MCHC RDW Plt Count MPV Absolute Neuts (auto) Total Counted Neutrophils % Neutrophils % (Manual) Band Neutrophils % Lymphocytes % Lymphocytes % (Manual) Monocytes % Monocytes % (Manual) Eosinophils % Basophils % Nucleated RBC % Platelet Estimate Platelet Comment Anisocytosis Macrocytosis PT with INR INR PTT (Actin FS) Anticoagulation Therapy No Result Required. Puncture Site Right radial Patient Temperature ABG pH 7.37 ABG pCO2 at Pt Temp 45.6 H ABG pO2 at Pt Temp 87.4 ABG HCO3 25.8 ABG O2 Sat (Measured) 96.4 ABG O2 Content 19.3 ABG Base Excess 0.7 Arnold Test Positive Carboxyhemoglobin 1.6 Methemoglobin 1.8 H O2 Delivery Device N/c Oxygen Flow Rate 4lpm Vent Mode No Result Required. Vent Rate No Result Required. Mechanical Rate No Result Required. PEEP Pressure Support Vent No Result Required. Sodium Potassium Plasma Potassium Chloride Carbon Dioxide Anion Gap BUN Creatinine Creat Clearance w eGFR POC Glucometer Random Glucose Hemoglobin A1c % Lactic Acid Calcium Phosphorus Magnesium Total Bilirubin AST ALT Alkaline Phosphatase Troponin I 2.53 H* B-Natriuretic Peptide Total Protein Albumin Urine Color Straw Urine Appearance Clear Urine pH 5.0 Ur Specific [place] 1.006 Urine Protein Negative Urine Glucose (UA) Negative Urine Ketones Negative Urine Blood Negative Urine Nitrite Negative Urine Bilirubin Negative Urine Urobilinogen Negative Ur Leukocyte Esterase Negative 03/09/18 03/09/18 03/09/18 04:00 06:00 06:00 WBC 21.8 H RBC 3.84 Hgb 13.2 Hct 39.1 MCV 101.9 H MCH 34.5 H MCHC 33.8 RDW 14.4 Plt Count 552 H D MPV 7.5 Absolute Neuts (auto) 19.4 H Total Counted 100 Neutrophils % 88.7 H D Neutrophils % (Manual) 86.0 H Band Neutrophils % 1.0 Lymphocytes % 4.9 L D Lymphocytes % (Manual) 5.0 L D Monocytes % 4.4 Monocytes % (Manual) 8 D Eosinophils % 0.8 Basophils % 1.2 Nucleated RBC % 0 Platelet Estimate Increased Platelet Comment No clumping noted Anisocytosis 1+ Macrocytosis 1+ PT with INR INR PTT (Actin FS) Anticoagulation Therapy Puncture Site Patient Temperature ABG pH ABG pCO2 at Pt Temp ABG pO2 at Pt Temp ABG HCO3 ABG O2 Sat (Measured) ABG O2 Content ABG Base Excess Arnold Test Carboxyhemoglobin Methemoglobin O2 Delivery Device Oxygen Flow Rate Vent Mode Vent Rate Mechanical Rate PEEP Pressure Support Vent Sodium 140 Potassium 4.0 Plasma Potassium Chloride 101 Carbon Dioxide 32 Anion Gap 7 L BUN 19 H Creatinine 1.0 Creat Clearance w eGFR 52.33 POC Glucometer Random Glucose 97 Hemoglobin A1c % Lactic Acid 1.4 Calcium 8.5 Phosphorus 3.8 Magnesium 2.0 Total Bilirubin 0.9 AST 29 ALT 18 Alkaline Phosphatase 99 Troponin I B-Natriuretic Peptide Total Protein 6.4 Albumin 3.4 Urine Color Urine Appearance Urine pH Ur Specific [place] Urine Protein Urine Glucose (UA) Urine Ketones Urine Blood Urine Nitrite Urine Bilirubin Urine Urobilinogen Ur Leukocyte Esterase 03/09/18 03/09/18 03/09/18 06:00 06:00 06:35 WBC RBC Hgb Hct MCV MCH MCHC RDW Plt Count MPV Absolute Neuts (auto) Total Counted Neutrophils % Neutrophils % (Manual) Band Neutrophils % Lymphocytes % Lymphocytes % (Manual) Monocytes % Monocytes % (Manual) Eosinophils % Basophils % Nucleated RBC % Platelet Estimate Platelet Comment Anisocytosis Macrocytosis PT with INR INR PTT (Actin FS) Anticoagulation Therapy Puncture Site Patient Temperature ABG pH ABG pCO2 at Pt Temp ABG pO2 at Pt Temp ABG HCO3 ABG O2 Sat (Measured) ABG O2 Content ABG Base Excess Arnold Test Carboxyhemoglobin Methemoglobin O2 Delivery Device Oxygen Flow Rate Vent Mode Vent Rate Mechanical Rate PEEP Pressure Support Vent Sodium Potassium Plasma Potassium 3.8 Chloride Carbon Dioxide Anion Gap BUN Creatinine Creat Clearance w eGFR POC Glucometer Random Glucose Hemoglobin A1c % 4.8 Lactic Acid Calcium Phosphorus Magnesium Total Bilirubin AST ALT Alkaline Phosphatase Troponin I B-Natriuretic Peptide 90651.35 H Total Protein Albumin Urine Color Urine Appearance Urine pH Ur Specific [place] Urine Protein Urine Glucose (UA) Urine Ketones Urine Blood Urine Nitrite Urine Bilirubin Urine Urobilinogen Ur Leukocyte Esterase 03/09/18 11:44 WBC RBC Hgb Hct MCV MCH MCHC RDW Plt Count MPV Absolute Neuts (auto) Total Counted Neutrophils % Neutrophils % (Manual) Band Neutrophils % Lymphocytes % Lymphocytes % (Manual) Monocytes % Monocytes % (Manual) Eosinophils % Basophils % Nucleated RBC % Platelet Estimate Platelet Comment Anisocytosis Macrocytosis PT with INR INR PTT (Actin FS) Anticoagulation Therapy Puncture Site Patient Temperature ABG pH ABG pCO2 at Pt Temp ABG pO2 at Pt Temp ABG HCO3 ABG O2 Sat (Measured) ABG O2 Content ABG Base Excess Arnold Test Carboxyhemoglobin Methemoglobin O2 Delivery Device Oxygen Flow Rate Vent Mode Vent Rate Mechanical Rate PEEP Pressure Support Vent Sodium Potassium Plasma Potassium Chloride Carbon Dioxide Anion Gap BUN Creatinine Creat Clearance w eGFR POC Glucometer 168.27958 Random Glucose Hemoglobin A1c % Lactic Acid Calcium Phosphorus Magnesium Total Bilirubin AST ALT Alkaline Phosphatase Troponin I B-Natriuretic Peptide Total Protein Albumin Urine Color Urine Appearance Urine pH Ur Specific [place] Urine Protein Urine Glucose (UA) Urine Ketones Urine Blood Urine Nitrite Urine Bilirubin Urine Urobilinogen Ur Leukocyte Esterase Active Medications Generic Name Dose Route Start Last Admin Trade Name Freq PRN Reason Stop Dose Admin Amlodipine Besylate 5 mg 03/09/18 10:00 03/09/18 10:35 Norvasc - PO 5 mg DAILY VANITA Administration Ascorbic Acid 500 mg 03/09/18 10:00 03/09/18 10:35 Vitamin C - PO 500 mg DAILY VANITA Administration Aspirin 325 mg 03/09/18 10:00 03/09/18 10:35 Asa - PO 325 mg DAILY VANITA Administration Atorvastatin Calcium 80 mg 03/09/18 22:00 Lipitor - PO HS VAINTA Clopidogrel Bisulfate 75 mg 03/10/18 10:00 Plavix - PO DAILY VANITA Furosemide 40 mg 03/09/18 12:04 03/09/18 13:10 Lasix Injection - IVPUSH 03/09/18 12:05 40 mg ONCE ONE Administration Heparin Sodium (Porcine) 1,000 unit 03/09/18 07:39 Heparin - IVPUSH PRN PRN Heparin Heparin Sodium (Porcine) 5,000 unit 03/09/18 07:39 Heparin - IVPUSH PRN PRN Heparin Hydroxyurea 500 mg 03/09/18 10:00 03/09/18 10:35 Hydrea - PO 500 mg DAILY VANITA Administration Azithromycin 500 mg/ Dextrose 250 mls @ 250 mls/hr 03/09/18 10:00 03/09/18 10 :45 IVPB 250 mls/hr DAILY VANITA Administration Heparin Sodium (Porcine) 25, 500 mls @ 16 mls/hr 03/09/18 07:45 03/09/18 08: 34 000 unit/ Sodium Chloride IV 800 unit/hr TITR VANITA 16 mls/hr Administration Protocol 800 UNIT/HR Ceftriaxone Sodium 1 gm/ 100 mls @ 200 mls/hr 03/09/18 13:15 03/09/18 13:52 Dextrose IVPB 200 mls/hr DAILY VANITA Administration Protocol Insulin Aspart 1 vial 03/09/18 07:00 03/09/18 11:48 Novolog Vial Sliding Scale - SQ 2 unit ACHS VANITA Administration Protocol Levothyroxine Sodium 12.5 mcg 03/09/18 07:00 03/09/18 07:59 Synthroid - PO 12.5 mcg DAILY@0700 VANITA Administration Losartan Potassium 100 mg 03/09/18 10:00 03/09/18 10:35 Cozaar - PO 100 mg DAILY VANITA Administration Metoprolol Tartrate 50 mg 03/09/18 10:00 03/09/18 10:35 Lopressor - PO 50 mg BID VANITA Administration Mirtazapine 7.5 mg 03/09/18 22:00 Remeron - PO HS VANITA Multivitamins/Minerals/Vitamin C 1 tab 03/09/18 10:00 03/09/18 10:35 Tab-A-Vit - PO 1 tab DAILY VANITA Administration Petrolatum 1 applic 03/09/18 10:00 03/09/18 10:35 Sensi-Care Protective Ointment TP Not Given BID VANITA 88 y/o Female resident of [facility] was sent to the ED with the complaints of worsening shortness of breath at rest. 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 Was on hydroxyurea but discontinued about a year ago since her levels were normal as per the pts son. Unsure if Hydroxyurea was stopped. [facility]. 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 Continue Aspirin. Doesn't need Plavix for P. vera, however, she might need it for NSTEMI. Has a h/o frequent falls, would recommend to be cautious. Monitor CBC Thrombocytosis Platelet count 927----> 552 Trend Plan of care explained to the patient and her son. They verbalized understanding. Case discussed with Dr. Mendez Dispo: We will continue to follow the patient. Thank you for this consultative opportunity. Visit type - Emergency Visit Emergency Visit: Yes ED Registration Date: 03/08/18 Care time: The patient presented to the Emergency Department on the above date and was hospitalized for further evaluation of their emergent condition. - New Patient This patient is new to me today: Yes Date on this admission: 03/09/18 - Critical Care Critical Care patient: No
--- NOTE | 2018-03-09 16:36 | PN ---
Teaching Attending Note Name of Resident: Yue Bejarano ATTENDING PHYSICIAN STATEMENT I saw and evaluated the patient. I reviewed the resident's note and discussed the case with the resident. I agree with the resident's findings and plan as documented. SUBJECTIVE: Patient seen and examined . Had SOB, cough, abnormal EKG compatible with NSTEMI. Past history of AF - no a/c secondary to frequent falls. Hx of cerebral infarction, mild dementia,. Hx of P. vera. Last Vital Signs Temp Pulse Resp BP Pulse Ox 99.2 F 84 22 105/75 93 L 03/09/18 06:52 03/09/18 13:57 03/09/18 13:57 03/09/18 13:57 03/09/18 13:57 HEENT: CARLOS ALBERTO, EOM Intact Oropharynx: No thrush, No mucositis,dentures Neck: Supple Nodes: Without adenopathy Breasts: Without masses Cor:irregular rhythm Lungs:rhonchi anteriorly and posteriorly Abd: Soft, Normal bowel sounds, No organomegaly Ext:No significant edema Skin: No rashes, Integument intact CBC, BMP 03/09/18 06:00 03/09/18 06:00 Current Medications Generic Name Dose Route Start Last Admin Trade Name Freq PRN Reason Stop Dose Admin Amlodipine Besylate 5 mg 03/09/18 10:00 03/09/18 10:35 Norvasc - PO 5 mg DAILY VANITA Administration Ascorbic Acid 500 mg 03/09/18 10:00 03/09/18 10:35 Vitamin C - PO 500 mg DAILY VANITA Administration Aspirin 325 mg 03/09/18 10:00 03/09/18 10:35 Asa - PO 325 mg DAILY VANITA Administration Atorvastatin Calcium 80 mg 03/09/18 22:00 Lipitor - PO HS VANITA Clopidogrel Bisulfate 75 mg 03/10/18 10:00 Plavix - PO DAILY VANITA Heparin Sodium (Porcine) 1,000 unit 03/09/18 07:39 Heparin - IVPUSH PRN PRN Heparin Heparin Sodium (Porcine) 5,000 unit 03/09/18 07:39 Heparin - IVPUSH PRN PRN Heparin Hydroxyurea 500 mg 03/09/18 10:00 03/09/18 10:35 Hydrea - PO 500 mg DAILY VANITA Administration Azithromycin 500 mg/ Dextrose 250 mls @ 250 mls/hr 03/09/18 10:00 03/09/18 10 :45 IVPB 250 mls/hr DAILY VANITA Administration Heparin Sodium (Porcine) 25, 500 mls @ 16 mls/hr 03/09/18 07:45 03/09/18 14: 41 000 unit/ Sodium Chloride IV 900 unit/hr TITR VANITA 18 mls/hr Administration Protocol 800 UNIT/HR Ceftriaxone Sodium 1 gm/ 50 mls @ 100 mls/hr 03/09/18 14:21 Dextrose IVPB DAILY VANITA Protocol Insulin Aspart 1 vial 03/09/18 07:00 03/09/18 11:48 Novolog Vial Sliding Scale - SQ 2 unit ACHS VANITA Administration Protocol Levothyroxine Sodium 12.5 mcg 03/09/18 07:00 03/09/18 07:59 Synthroid - PO 12.5 mcg DAILY@0700 VANITA Administration Losartan Potassium 100 mg 03/09/18 10:00 03/09/18 10:35 Cozaar - PO 100 mg DAILY VANITA Administration Metoprolol Tartrate 50 mg 03/09/18 10:00 03/09/18 10:35 Lopressor - PO 50 mg BID VANITA Administration Mirtazapine 7.5 mg 03/09/18 22:00 Remeron - PO HS VANITA Multivitamins/Minerals/Vitamin C 1 tab 03/09/18 10:00 03/09/18 10:35 Tab-A-Vit - PO 1 tab DAILY VANITA Administration Petrolatum 1 applic 03/09/18 10:00 03/09/18 10:35 Sensi-Care Protective Ointment TP Not Given BID [facility] OBJECTIVE:Impression: NSTEMI AF Cerebral infarction P.vera Frequent falls From the P.Vera point of view ( assuming this is the diagnosis vs. Essential thrombocythemia) Hct should be maintained at 45%; ASA should be 81 mg. (not 325 mg) If ASA and Plavix are on board , presumabley it is as antiplatelet therapy for cerebrovascular disease -- not P.vera or E.T. In addition, ichart reflects that patient is a fall risk such that the use of Plavix should be re-assessed. If patient has E.T. she is at high risk for vascular events ( age> 60, prior vascular events, and presumed CARLOS EDUARDO-2 positivity. This would ordinarily be an indication for Hydrea therapy, with to maintain platelets close to or at normal range. ) Will need to get more details about diagnosis- when and how established. ASSESSMENT AND PLAN:
[2018-03-09] MEDS: ATORVASTATIN CA 80 MG TABLET (FP) PO SCH (21:13)
[2018-03-09] MEDS: MIRTAZAPINE 15 MG TABLET (FP) PO SCH (21:36)
[2018-03-10] MEDS: INSULIN SLIDING SCALE (NOVOLOG) 1 VIAL SQ SCH ×4 (06:35→22:07)
[2018-03-10] MEDS: LEVOTHYROXINE NA 25 MCG TABLET (FP) PO SCH (07:01)
[2018-03-10 07:35] LABS: HEMATOCRIT 35.2 % (32.4-45.2); HEMOGLOBIN 11.6 GM/dL (10.7-15.3); MCHC 33.1 g/dl (32.0-36.0); MEAN CELL VOLUME 102.7 fl (80-96); MEAN PLT VOLUME 7.9 fl (7.5-11.1); PLATELET COUNT 488 K/MM3 (134-434); RBC 3.42 M/mm3 (3.60-5.2); RDW 14.5 % (11.6-15.6); WHITE BLOOD COUNT 15.5 K/mm3 (4.0-10.0)
[2018-03-10 08:22] LABS: ANION GAP 12 MMOL/L (8-16); BLOOD UREA NITROGEN 24 mg/dL (7-18); CALCIUM 8.4 mg/dL (8.5-10.1); CHLORIDE 102 mmol/L (98-107); CO2 27 mmol/L (21-32); GLUCOSE,RANDOM 77 mg/dL (74-106); POTASSIUM 3.8 mmol/L (3.5-5.1); SODIUM 141 mmol/L (136-145)
[2018-03-10 08:29] LABS: CREATININE 0.9 mg/dL (0.55-1.3)
[2018-03-10] MEDS ORDERED: DEXTROSE 5%-WATER - 50 ML IVPB ONE (08:35)
[2018-03-10] MEDS ORDERED: cefTRIAXone SODIUM 1 GM VIAL ONE (08:35)
[2018-03-10] MEDS: HEPARIN - 25,000 UNIT in SODIUM CHLORIDE 495 ML IV SCH (08:43)
--- NOTE | 2018-03-10 10:13 | PN ---
Progress Note, Physician Chief Complaint: NSTEMI History of Present Illness: denies sob or PND no cp no palpit, syncope no cigs - Current Medication List Current Medications: Active Medications Amlodipine Besylate (Norvasc -) 5 mg PO DAILY [facility] Last Admin: 03/09/18 10:35 Dose: 5 mg Ascorbic Acid (Vitamin C -) 500 mg PO DAILY [facility] Last Admin: 03/09/18 10:35 Dose: 500 mg Aspirin (Asa -) 325 mg PO DAILY [facility] Last Admin: 03/09/18 10:35 Dose: 325 mg Atorvastatin Calcium (Lipitor -) 80 mg PO HS [facility] Last Admin: 03/09/18 21:13 Dose: 80 mg Clopidogrel Bisulfate (Plavix -) 75 mg PO DAILY [facility] Heparin Sodium (Porcine) (Heparin -) 1,000 unit IVPUSH PRN PRN PRN Reason: Heparin Heparin Sodium (Porcine) (Heparin -) 5,000 unit IVPUSH PRN PRN PRN Reason: Heparin Hydroxyurea (Hydrea -) 500 mg PO DAILY [facility] Last Admin: 03/09/18 10:35 Dose: 500 mg Heparin Sodium (Porcine) 25, (000 unit/ Sodium Chloride) 500 mls @ 16 mls/hr IV TITR [facility]; Protocol Last Admin: 03/10/18 08:43 Dose: Not Given Ceftriaxone Sodium 1 gm/ (Dextrose) 50 mls @ 100 mls/hr IVPB DAILY [facility]; Protocol Insulin Aspart (Novolog Vial Sliding Scale -) 1 vial SQ ACHS [facility]; Protocol Last Admin: 03/10/18 06:35 Dose: Not Given Levothyroxine Sodium (Synthroid -) 12.5 mcg PO DAILY@0700 [facility] Last Admin: 03/10/18 07:01 Dose: 12.5 mcg Losartan Potassium (Cozaar -) 100 mg PO DAILY [facility] Last Admin: 03/09/18 10:35 Dose: 100 mg Metoprolol Tartrate (Lopressor -) 50 mg PO BID [facility] Last Admin: 03/09/18 21:13 Dose: 50 mg Mirtazapine (Remeron -) 7.5 mg PO HS [facility] Last Admin: 03/09/18 21:36 Dose: 7.5 mg Multivitamins/Minerals/Vitamin C (Tab-A-Vit -) 1 tab PO DAILY [facility] Last Admin: 03/09/18 10:35 Dose: 1 tab Petrolatum (Sensi-Care Protective Ointment) 1 applic TP BID [facility] Last Admin: 03/09/18 22:00 Dose: Not Given - Objective Vital Signs: Vital Signs Temperature 98.5 F 03/10/18 05:00 Pulse Rate 84 03/10/18 05:00 Respiratory Rate 18 03/10/18 05:00 Blood Pressure 133/65 03/10/18 05:00 O2 Sat by Pulse Oximetry (%) 95 03/09/18 22:00 Constitutional: Yes: No Distress, Calm Eyes: No: Sclera Icterus HENT: No: Nasal Congestion Cardiovascular: Yes: Regular Rate and Rhythm, S1, S2, Other (PMI non diplaced). No: JVD, Gallop, Murmur Respiratory: Yes: CTA Bilaterally. No: Accessory Muscle Use, Rales, Wheezes Gastrointestinal: Yes: Normal Bowel Sounds, Soft. No: Tenderness Musculoskeletal: Yes: Other (No kyphosis) Extremities: No: Cold Edema: No Integumentary: No: Jaundice Neurological: Yes: Alert. No: Seizure Psychiatric: No: Agitated Labs: CBC, BMP 03/10/18 05:50 03/10/18 05:50 INR, PTT INR 1.11 (0.83-1.09) H 03/08/18 19:05 Assessment/Plan Echo 03/13: EF 30-35%; AK of AW, mid-, apical AW and apical IW. nl RV. mild LAE. mild MR/TR. RVSP 30-40. ECGs: as described below tele: NSR NSTEMI: -sx of acute sob in [place], with acute chf on presentation--sx's resolved with one dose lasix in ER -ecg with pathological q waves in V1 and V2, with mild ST elevation at baseline here--dynamic worsening of ST elevation here with depressions in diffuse leads in ER, which returned to baseline -peak trop 2.5, trended down -remains asymptomatic since initial event -case was d/w'd interventionalist who reviewed ekgs and agreed this is not c/w STEMI, rather NSTEMI -invasive tx approach with cath is associated with certain limitations, including increased risk of bleed in elderly on prolonged DAPT; hi likelihood of diffuse, severe CAD not optimal for PCI approach and pt at extremely hi risk for CABG; signif increased procedural risk given severely reduced LVEF. -issues including R/B of cath were discussed with son ( abbey) who wished to pursue med mgmt while we observe her for recurrent sx's or other evidence of ischemia -continue anti-thrombotics: asa, plavix, hep gtt--trend H/H daily -hi intensity statin as doing--may need dial back dose after acute episode -continue lopressor 50 bid as doing for now. bp's low side, this am's improved.- -change to toprol tomorrow if remains stable clinically with good bp (for LV dysfunction regimen) -start DANE later once stable bp on toprol -pt not a good candidate for primary prevention ICD per society guidelines, given very advanced age and dementia comorbidity makes her unlikely to gain benefit acute syst chf: -acute ischemic pulm edema picture (bilat alveolar infiltrates, no effusions on cxr). BNP 27K -prior LV fxn unknown. echo here severely reduced EF -received iv lasix x 2 on DOA, sob resolved -appears euvolemic--holding lasix -BB, DANE as above -monitor lytes--K/Mg > 4/2 afib: -in sr here, cont bb -not on ac due to falls in past, has been on asa ppm: -outpt f/u as doing in [place]
[2018-03-10] MEDS: ASPIRIN 325 MG TABLET PO SCH (10:17)
[2018-03-10] MEDS: METOPROLOL TARTRATE 50 MG TABLET (FP) PO SCH ×2 (10:18→22:01)
[2018-03-10] MEDS: ASCORBIC ACID 500 MG TABLET (FP) PO SCH (10:18)
[2018-03-10] MEDS: CLOPIDOGREL BISULFATE 75 MG TABLET (FP) PO SCH (10:18)
[2018-03-10] MEDS: CEFTRIAXONE 1 GM in DEXTROSE 5%-WATER - 50 ML IVPB SCH (10:18)
[2018-03-10] MEDS: amLODIPine BESYLATE 5 MG TABLET (FP) PO SCH (10:18)
[2018-03-10] MEDS: LOSARTAN POTASSIUM 50 MG TABLET (FP) PO SCH (10:18)
[2018-03-10] MEDS: MULTIVITAMINS (DAILY MVI) TABLET (FP) PO SCH (10:18)
[2018-03-10] MEDS: HYDROXYUREA 500 MG CAPSULE PO SCH (10:18)
[2018-03-10] MEDS: ZINC OXIDE/PETROLATUM,WHITE 1 APPLIC OINT...G. TP SCH ×2 (10:19→22:07)
[2018-03-10] MEDS ORDERED: POTASSIUM CHLORIDE TABS 10 MEQ TABLET.ER (FP) PO ONE (12:28)
--- NOTE | 2018-03-10 13:41 | PN ---
Progress Note (short form) - Note Progress Note: pt seen in tele comfortable denies cp. nephew at bedside all f/u noted/ appreciated Vital Signs Temp 98.3 F 03/10/18 10:16 Pulse 78 03/10/18 10:16 Resp 17 03/10/18 10:16 BP 100/53 03/10/18 10:16 Pulse Ox 95 03/10/18 09:00 Intake & Output 03/09/18 03/10/18 03/10/18 23:59 11:59 23:59 Intake Total 100 556 Balance 100 556 Weight 100 lb Intake: IV 216 Heparin - 25,000 Unit In 216 Normal Saline - 495 ml @ 800 UNIT/HR 16 mls/hr IV TITR [facility] Rx#:[id number] Oral 100 340 Other: Voiding Method Diaper Diaper Incontinent # Unmeasured Voids Void 2 Height 5 ft 1 in Body Mass Index (BMI) 18.8 Active Medications Amlodipine Besylate (Norvasc -) 5 mg PO DAILY [facility] Last Admin: 03/10/18 10:18 Dose: 5 mg Ascorbic Acid (Vitamin C -) 500 mg PO DAILY [facility] Last Admin: 03/10/18 10:18 Dose: 500 mg Aspirin (Asa -) 325 mg PO DAILY [facility] Last Admin: 03/10/18 10:17 Dose: 325 mg Atorvastatin Calcium (Lipitor -) 80 mg PO HS [facility] Last Admin: 03/09/18 21:13 Dose: 80 mg Clopidogrel Bisulfate (Plavix -) 75 mg PO DAILY [facility] Last Admin: 03/10/18 10:18 Dose: 75 mg Heparin Sodium (Porcine) (Heparin -) 1,000 unit IVPUSH PRN PRN PRN Reason: Heparin Heparin Sodium (Porcine) (Heparin -) 5,000 unit IVPUSH PRN PRN PRN Reason: Heparin Hydroxyurea (Hydrea -) 500 mg PO DAILY [facility] Last Admin: 03/10/18 10:18 Dose: 500 mg Heparin Sodium (Porcine) 25, (000 unit/ Sodium Chloride) 500 mls @ 16 mls/hr IV TITR [facility]; Protocol Last Admin: 03/10/18 08:43 Dose: Not Given Ceftriaxone Sodium 1 gm/ (Dextrose) 50 mls @ 100 mls/hr IVPB DAILY [facility]; Protocol Last Admin: 03/10/18 10:18 Dose: 100 mls/hr Insulin Aspart (Novolog Vial Sliding Scale -) 1 vial SQ ACHS [facility]; Protocol Last Admin: 03/10/18 11:57 Dose: 2 unit Levothyroxine Sodium (Synthroid -) 12.5 mcg PO DAILY@0700 [facility] Last Admin: 03/10/18 07:01 Dose: 12.5 mcg Losartan Potassium (Cozaar -) 100 mg PO DAILY [facility] Last Admin: 03/10/18 10:18 Dose: 100 mg Metoprolol Tartrate (Lopressor -) 50 mg PO BID [facility] Last Admin: 03/10/18 10:18 Dose: 50 mg Mirtazapine (Remeron -) 7.5 mg PO HS [facility] Last Admin: 03/09/18 21:36 Dose: 7.5 mg Multivitamins/Minerals/Vitamin C (Tab-A-Vit -) 1 tab PO DAILY [facility] Last Admin: 03/10/18 10:18 Dose: 1 tab Petrolatum (Sensi-Care Protective Ointment) 1 applic TP BID [facility] Last Admin: 03/10/18 10:19 Dose: Not Given CBC, BMP 03/10/18 05:50 03/10/18 05:50 Microbiology 03/09/18 00:10 Urine Culture - Final Urine - Urine Clean Catch NO GROWTH OBTAINED 03/08/18 19:06 Blood Culture - Preliminary Blood - Peripheral Venous NO GROWTH OBTAINED AFTER 24 HOURS, INCUBATION TO CONTINUE FOR 4 DAYS. 03/08/18 19:06 Blood Culture - Preliminary Blood - Peripheral Venous NO GROWTH OBTAINED AFTER 24 HOURS, INCUBATION TO CONTINUE FOR 4 DAYS. 03/08/18 23:52 Legionella Antigen - Final Urine - Urine - Catheterized Streptococcus pneumoniae Antigen (M - Final Physical Constitutional: Yes: No Distress, Calm Eyes: Yes: Conjunctiva Clear Neck: Yes: Supple, Other (no jvd) Respiratory: Yes: CTA Bilaterally Gastrointestinal: Yes: Soft Edema: No Neurological: Yes: Alert Assessment/Plan stable improved wbc tropnin trending down discussed with cardiology again today heparin drip. asa/ plavix abx f/u cultures/ wbc discussed with nursing staff also condition better discussed with pts nephew also will follow cc time 30 min
--- NOTE | 2018-03-10 16:24 | PN ---
Progress Note (short form) - Note Progress Note: Patient seen in follow up. No new complaints. No significant events overnight. Reports feeling well. Inpatient Meds reviewed. Current Medications Generic Name Dose Route Start Last Admin Trade Name Yoan PRN Reason Stop Dose Admin Amlodipine Besylate 5 mg 03/09/18 10:00 03/10/18 10:18 Norvasc - PO 5 mg DAILY [facility] Administration Ascorbic Acid 500 mg 03/09/18 10:00 03/10/18 10:18 Vitamin C - PO 500 mg DAILY [facility] Administration Aspirin 325 mg 03/09/18 10:00 03/10/18 10:17 Asa - PO 325 mg DAILY [facility] Administration Atorvastatin Calcium 80 mg 03/09/18 22:00 03/09/18 21:13 Lipitor - PO 80 mg HS [facility] Administration Clopidogrel Bisulfate 75 mg 03/10/18 10:00 03/10/18 10:18 Plavix - PO 75 mg DAILY [facility] Administration Heparin Sodium (Porcine) 1,000 unit 03/09/18 07:39 Heparin - IVPUSH PRN PRN Heparin Heparin Sodium (Porcine) 5,000 unit 03/09/18 07:39 Heparin - IVPUSH PRN PRN Heparin Hydroxyurea 500 mg 03/09/18 10:00 03/10/18 10:18 Hydrea - PO 500 mg DAILY [facility] Administration Heparin Sodium (Porcine) 25, 500 mls @ 16 mls/hr 03/09/18 07:45 03/10/18 08: 43 000 unit/ Sodium Chloride IV Not Given TITR [facility] Protocol 800 UNIT/HR Ceftriaxone Sodium 1 gm/ 50 mls @ 100 mls/hr 03/09/18 14:21 03/10/18 10:18 Dextrose IVPB 100 mls/hr DAILY [facility] Administration Protocol Insulin Aspart 1 vial 03/09/18 07:00 03/10/18 11:57 Novolog Vial Sliding Scale - SQ 2 unit ACHS [facility] Administration Protocol Levothyroxine Sodium 12.5 mcg 03/09/18 07:00 03/10/18 07:01 Synthroid - PO 12.5 mcg DAILY@0700 [facility] Administration Losartan Potassium 100 mg 03/09/18 10:00 03/10/18 10:18 Cozaar - PO 100 mg DAILY [facility] Administration Metoprolol Tartrate 50 mg 03/09/18 10:00 03/10/18 10:18 Lopressor - PO 50 mg BID [facility] Administration Mirtazapine 7.5 mg 03/09/18 22:00 03/09/18 21:36 Remeron - PO 7.5 mg HS [facility] Administration Multivitamins/Minerals/Vitamin C 1 tab 03/09/18 10:00 03/10/18 10:18 Tab-A-Vit - PO 1 tab DAILY [facility] Administration Petrolatum 1 applic 03/09/18 10:00 03/10/18 10:19 Sensi-Care Protective Ointment TP Not Given BID [facility] On Examination: Last Vital Signs Temp Pulse Resp BP Pulse Ox 98.2 F 72 18 107/51 95 03/10/18 14:46 03/10/18 14:46 03/10/18 14:46 03/10/18 14:46 03/10/18 09:00 General: In no acute distress, lying comfortably in bed. Extremities: No pallor or icterus. No pedal edema. No palpable lymphadenopathy. CVS: S1, S2, regular, no gallop or murmur. Chest: good air entry bilaterally, clear Abdomen: Non-distended, non-tender, no palpable organomegaly. Neuro: Alert, pleasantly confused, non-focal. Labs: CBC, BMP 03/10/18 05:50 03/10/18 05:50 Assessment. Elderly NH resident, baseline dementia, admitted with non-STEMI, conservative monanagement. Reported history of MPN, with neutrophilia and thrombocytosis on admission, now improved. Anticoagulation for ACS indication - no known history of venous thrombosis. On discharge risk:benefit analysis warranted, as patient appears to be a falling risk. For hematological indication, baby ASA alone would be sufficient, together with control of platelet count.
[2018-03-10] MEDS ORDERED: PT OWN MED DRAWER 7, Y5N ONE (21:33)
[2018-03-10] MEDS: MIRTAZAPINE 15 MG TABLET (FP) PO SCH (22:01)
[2018-03-10] MEDS: ATORVASTATIN CA 80 MG TABLET (FP) PO SCH (22:01)
[2018-03-11] MEDS: INSULIN SLIDING SCALE (NOVOLOG) 1 VIAL SQ SCH ×4 (06:33→21:54)
[2018-03-11] MEDS: LEVOTHYROXINE NA 25 MCG TABLET (FP) PO SCH (06:34)
[2018-03-11 07:37] LABS: HEMATOCRIT 34.8 % (32.4-45.2); HEMOGLOBIN 11.3 GM/dL (10.7-15.3); MCH 33.4 pg (25.7-33.7); MCHC 32.6 g/dl (32.0-36.0); MEAN CELL VOLUME 102.6 fl (80-96); PLATELET COUNT 513 K/MM3 (134-434); RBC 3.39 M/mm3 (3.60-5.2); RDW 14.4 % (11.6-15.6); WHITE BLOOD COUNT 14.1 K/mm3 (4.0-10.0)
[2018-03-11 08:34] LABS: CHLORIDE 105 mmol/L (98-107); POTASSIUM 4.6 mmol/L (3.5-5.1); SODIUM 143 mmol/L (136-145)
[2018-03-11 08:43] LABS: ANION GAP 9 MMOL/L (8-16); BLOOD UREA NITROGEN 27 mg/dL (7-18); CALCIUM 8.3 mg/dL (8.5-10.1); CO2 29 mmol/L (21-32); GLUCOSE,RANDOM 74 mg/dL (74-106); MAGNESIUM 2.4 mg/dL (1.8-2.4)
[2018-03-11] MEDS ORDERED: cefTRIAXone SODIUM 1 GM VIAL ONE (09:10)
[2018-03-11] MEDS ORDERED: DEXTROSE 5%-WATER - 50 ML IVPB ONE (09:10)
--- NOTE | 2018-03-11 09:54 | PN ---
Progress Note, Physician Chief Complaint: [place] History of Present Illness: denies sob, cp. no palpitations, syncope - Current Medication List Current Medications: Active Medications Amlodipine Besylate (Norvasc -) 5 mg PO DAILY [facility] Last Admin: 03/10/18 10:18 Dose: 5 mg Ascorbic Acid (Vitamin C -) 500 mg PO DAILY [facility] Last Admin: 03/10/18 10:18 Dose: 500 mg Aspirin (Asa -) 325 mg PO DAILY [facility] Last Admin: 03/10/18 10:17 Dose: 325 mg Atorvastatin Calcium (Lipitor -) 80 mg PO HS [facility] Last Admin: 03/10/18 22:01 Dose: 80 mg Clopidogrel Bisulfate (Plavix -) 75 mg PO DAILY [facility] Last Admin: 03/10/18 10:18 Dose: 75 mg Heparin Sodium (Porcine) (Heparin -) 1,000 unit IVPUSH PRN PRN PRN Reason: Heparin Heparin Sodium (Porcine) (Heparin -) 5,000 unit IVPUSH PRN PRN PRN Reason: Heparin Hydroxyurea (Hydrea -) 500 mg PO DAILY [facility] Last Admin: 03/10/18 10:18 Dose: 500 mg Heparin Sodium (Porcine) 25, (000 unit/ Sodium Chloride) 500 mls @ 16 mls/hr IV TITR [facility]; Protocol Last Admin: 03/10/18 08:43 Dose: Not Given Ceftriaxone Sodium 1 gm/ (Dextrose) 50 mls @ 100 mls/hr IVPB DAILY [facility]; Protocol Last Admin: 03/10/18 10:18 Dose: 100 mls/hr Insulin Aspart (Novolog Vial Sliding Scale -) 1 vial SQ ACHS [facility]; Protocol Last Admin: 03/11/18 06:33 Dose: Not Given Levothyroxine Sodium (Synthroid -) 12.5 mcg PO DAILY@0700 [facility] Last Admin: 03/11/18 06:34 Dose: 12.5 mcg Losartan Potassium (Cozaar -) 100 mg PO DAILY [facility] Last Admin: 03/10/18 10:18 Dose: 100 mg Metoprolol Tartrate (Lopressor -) 50 mg PO BID [facility] Last Admin: 03/10/18 22:01 Dose: 50 mg Mirtazapine (Remeron -) 7.5 mg PO HS [facility] Last Admin: 03/10/18 22:01 Dose: 7.5 mg Multivitamins/Minerals/Vitamin C (Tab-A-Vit -) 1 tab PO DAILY [facility] Last Admin: 03/10/18 10:18 Dose: 1 tab Petrolatum (Sensi-Care Protective Ointment) 1 applic TP BID [facility] Last Admin: 03/10/18 22:07 Dose: Not Given - Objective Vital Signs: Vital Signs Temperature 99.0 F 03/11/18 09:03 Pulse Rate 87 03/11/18 09:03 Respiratory Rate 20 03/11/18 09:03 Blood Pressure 132/60 03/11/18 09:03 O2 Sat by Pulse Oximetry (%) 92 L 03/11/18 09:03 Constitutional: Yes: Well Nourished, No Distress, Calm Cardiovascular: Yes: Regular Rate and Rhythm, S1, S2. No: Gallop, Murmur Respiratory: Yes: Regular, CTA Bilaterally. No: Accessory Muscle Use, Wheezes Extremities: Yes: Cold Edema: No Neurological: Yes: Alert, Oriented Psychiatric: No: Agitated Labs: CBC, BMP 03/11/18 05:30 03/11/18 05:30 INR, PTT INR 1.11 (0.83-1.09) H 03/08/18 19:05 Assessment/Plan Echo 03/13: EF 30-35%; AK of AW, mid-, apical AW and apical IW. nl RV. mild LAE. mild MR/TR. RVSP 30-40. ECGs: as described below tele: NSR NSTEMI: -sx of acute sob in [place], with acute chf on presentation--sx's resolved with one dose lasix in ER -ecg with pathological q waves in V1 and V2, with mild ST elevation at baseline here--dynamic worsening of ST elevation here with depressions in diffuse leads in ER, which returned to baseline -peak trop 2.5, trended down -remains asymptomatic since initial event -case was d/w'd interventionalist who reviewed ekgs and agreed this is not c/w STEMI, rather NSTEMI -invasive tx approach with cath is associated with certain limitations, including increased risk of bleed in elderly on prolonged DAPT; hi likelihood of diffuse, severe CAD not optimal for PCI approach and pt at extremely hi risk for CABG; signif increased procedural risk given severely reduced LVEF. -issues including R/B of cath were discussed with son (dr potter) who wished to pursue med mgmt while we observe her for recurrent sx's or other evidence of ischemia -continue anti-thrombotics: asa, plavix, hep gtt--trend H/H daily -hi intensity statin as doing--may need dial back dose after acute episode -bps variable 90s-130s systolic. -change lopressor 50 bid to toprol 50 qd (for GDMT, LV dysfunction regimen) -start DNAE later once stable bp on toprol -pt not a good candidate for primary prevention ICD per society guidelines, given very advanced age and dementia comorbidity makes her unlikely to gain benefit acute syst chf: -acute ischemic pulm edema picture (bilat alveolar infiltrates, no effusions on cxr). BNP 27K -prior LV fxn unknown. echo here severely reduced EF -received iv lasix x 2 on DOA, sob resolved -appears euvolemic--holding lasix -BB, DANE as above -monitor lytes--K/Mg > 4/2 afib: -in sr here, cont bb -not on ac due to falls in past, has been on asa ppm: -outpt f/u as doing in [place] ANTICIPATE SHE IS READY FOR TRANSFER BACK TO [place] TOMORROW
[2018-03-11] MEDS: ASCORBIC ACID 500 MG TABLET (FP) PO SCH (11:00)
[2018-03-11] MEDS: ASPIRIN 325 MG TABLET PO SCH (11:33)
[2018-03-11] MEDS: HEPARIN - 25,000 UNIT in SODIUM CHLORIDE 495 ML IV SCH (11:33)
[2018-03-11] MEDS: amLODIPine BESYLATE 5 MG TABLET (FP) PO SCH (11:34)
[2018-03-11] MEDS: HYDROXYUREA 500 MG CAPSULE PO SCH (11:34)
[2018-03-11] MEDS: CLOPIDOGREL BISULFATE 75 MG TABLET (FP) PO SCH (11:34)
[2018-03-11] MEDS: LOSARTAN POTASSIUM 50 MG TABLET (FP) PO SCH (11:34)
[2018-03-11] MEDS: MULTIVITAMINS (DAILY MVI) TABLET (FP) PO SCH (11:35)
[2018-03-11] MEDS: CEFTRIAXONE 1 GM in DEXTROSE 5%-WATER - 50 ML IVPB SCH (11:35)
[2018-03-11] MEDS: ZINC OXIDE/PETROLATUM,WHITE 1 APPLIC OINT...G. TP SCH ×2 (14:50→21:43)
--- NOTE | 2018-03-11 15:12 | PN ---
Progress Note (short form) - Note Progress Note: comfortable alert/ awake denies cp/sob. wbc trending down cultures -ve so far Vital Signs Temp 98.0 F 03/11/18 13:00 Pulse 70 03/11/18 13:00 Resp 20 03/11/18 13:00 BP 119/68 03/11/18 13:00 Pulse Ox 97 03/11/18 13:00 Intake & Output 03/10/18 03/11/18 03/11/18 23:59 11:59 23:59 Intake Total 754 344 240 Output Total 2 Balance 754 344 238 Intake: IV 144 144 Heparin - 25,000 Unit In 144 144 Normal Saline - 495 ml @ 800 UNIT/HR 16 mls/hr IV TITR [facility] Rx#:[id number] IVPB 50 Oral 560 200 240 Output: Urine 2 Void 2 Other: Voiding Method Incontinent Toilet Toilet # Unmeasured Voids Void 3 2 Bowel Movement Yes Yes # Bowel Movements 1 1 Active Medications Amlodipine Besylate (Norvasc -) 5 mg PO DAILY [facility] Last Admin: 03/11/18 11:34 Dose: 5 mg Ascorbic Acid (Vitamin C -) 500 mg PO DAILY [facility] Last Admin: 03/11/18 11:00 Dose: 500 mg Aspirin (Asa -) 325 mg PO DAILY [facility] Last Admin: 03/11/18 11:33 Dose: 325 mg Atorvastatin Calcium (Lipitor -) 80 mg PO HS [facility] Last Admin: 03/10/18 22:01 Dose: 80 mg Clopidogrel Bisulfate (Plavix -) 75 mg PO DAILY [facility] Last Admin: 03/11/18 11:34 Dose: 75 mg Heparin Sodium (Porcine) (Heparin -) 1,000 unit IVPUSH PRN PRN PRN Reason: Heparin Last Admin: 03/11/18 14:55 Dose: 1,000 unit Heparin Sodium (Porcine) (Heparin -) 5,000 unit IVPUSH PRN PRN PRN Reason: Heparin Hydroxyurea (Hydrea -) 500 mg PO DAILY [facility] Last Admin: 03/11/18 11:34 Dose: 500 mg Heparin Sodium (Porcine) 25, (000 unit/ Sodium Chloride) 500 mls @ 16 mls/hr IV TITR [facility]; Protocol Last Admin: 03/11/18 11:33 Dose: 700 unit/hr, 14 mls/hr Ceftriaxone Sodium 1 gm/ (Dextrose) 50 mls @ 100 mls/hr IVPB DAILY [facility]; Protocol Last Admin: 03/11/18 11:35 Dose: 100 mls/hr Insulin Aspart (Novolog Vial Sliding Scale -) 1 vial SQ ACHS [facility]; Protocol Last Admin: 03/11/18 12:39 Dose: Not Given Levothyroxine Sodium (Synthroid -) 12.5 mcg PO DAILY@0700 [facility] Last Admin: 03/11/18 06:34 Dose: 12.5 mcg Losartan Potassium (Cozaar -) 100 mg PO DAILY [facility] Last Admin: 03/11/18 11:34 Dose: 100 mg Metoprolol Succinate (Toprol Xl -) 50 mg PO DAILY [facility] Last Admin: 03/11/18 11:00 Dose: 50 mg Mirtazapine (Remeron -) 7.5 mg PO HS [facility] Last Admin: 03/10/18 22:01 Dose: 7.5 mg Multivitamins/Minerals/Vitamin C (Tab-A-Vit -) 1 tab PO DAILY [facility] Last Admin: 03/11/18 11:35 Dose: 1 tab Petrolatum (Sensi-Care Protective Ointment) 1 applic TP BID [facility] Last Admin: 03/11/18 14:50 Dose: Not Given CBC, BMP 03/11/18 05:30 03/11/18 05:30 Microbiology 03/08/18 19:06 Blood Culture - Preliminary Blood - Peripheral Venous NO GROWTH OBTAINED AFTER 48 HOURS, INCUBATION TO CONTINUE FOR 3 DAYS. 03/08/18 19:06 Blood Culture - Preliminary Blood - Peripheral Venous NO GROWTH OBTAINED AFTER 48 HOURS, INCUBATION TO CONTINUE FOR 3 DAYS. Physical Constitutional: Yes: No Distress, Comfortable Eyes: Yes: Conjunctiva Clear Neck: Yes: Supple, Other (no jvd) Respiratory: Yes: CTA Bilaterally Gastrointestinal: Yes: Soft/ non tender Edema: No Neurological: Yes: Alert Assessment/Plan stable improved wbc tropnin trending down heparin drip. asa/ plavix abx if stable - consider d/c in am will follow. 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
--- NOTE | 2018-03-11 15:39 | PN ---
Progress Note (short form) - Note Progress Note: Patient seen in follow up. No new complaints. No significant events overnight. Reports feeling well. Inpatient Meds reviewed. Current Medications Generic Name Dose Route Start Last Admin Trade Name Yoan PRN Reason Stop Dose Admin Amlodipine Besylate 5 mg 03/09/18 10:00 03/11/18 11:34 Norvasc - PO 5 mg DAILY [facility] Administration Ascorbic Acid 500 mg 03/09/18 10:00 03/11/18 11:00 Vitamin C - PO 500 mg DAILY [facility] Administration Aspirin 325 mg 03/09/18 10:00 03/11/18 11:33 Asa - PO 325 mg DAILY [facility] Administration Atorvastatin Calcium 80 mg 03/09/18 22:00 03/10/18 22:01 Lipitor - PO 80 mg HS [facility] Administration Clopidogrel Bisulfate 75 mg 03/10/18 10:00 03/11/18 11:34 Plavix - PO 75 mg DAILY [facility] Administration Heparin Sodium (Porcine) 1,000 unit 03/09/18 07:39 03/11/18 14:55 Heparin - IVPUSH 1,000 unit PRN PRN Administration Heparin Heparin Sodium (Porcine) 5,000 unit 03/09/18 07:39 Heparin - IVPUSH PRN PRN Heparin Hydroxyurea 500 mg 03/09/18 10:00 03/11/18 11:34 Hydrea - PO 500 mg DAILY [facility] Administration Heparin Sodium (Porcine) 25, 500 mls @ 16 mls/hr 03/09/18 07:45 03/11/18 11: 33 000 unit/ Sodium Chloride IV 700 unit/hr TITR [facility] 14 mls/hr Administration Protocol 800 UNIT/HR Ceftriaxone Sodium 1 gm/ 50 mls @ 100 mls/hr 03/09/18 14:21 03/11/18 11:35 Dextrose IVPB 100 mls/hr DAILY [facility] Administration Protocol Insulin Aspart 1 vial 03/09/18 07:00 03/11/18 12:39 Novolog Vial Sliding Scale - SQ Not Given ACHS [facility] Protocol Levothyroxine Sodium 12.5 mcg 03/09/18 07:00 03/11/18 06:34 Synthroid - PO 12.5 mcg DAILY@0700 [facility] Administration Losartan Potassium 100 mg 03/09/18 10:00 03/11/18 11:34 Cozaar - PO 100 mg DAILY [facility] Administration Metoprolol Succinate 50 mg 03/11/18 10:00 03/11/18 11:00 Toprol Xl - PO 50 mg DAILY [facility] Administration Mirtazapine 7.5 mg 03/09/18 22:00 03/10/18 22:01 Remeron - PO 7.5 mg HS [facility] Administration Multivitamins/Minerals/Vitamin C 1 tab 03/09/18 10:00 03/11/18 11:35 Tab-A-Vit - PO 1 tab DAILY [facility] Administration Petrolatum 1 applic 03/09/18 10:00 03/11/18 14:50 Sensi-Care Protective Ointment TP Not Given BID [facility] On Examination: Last Vital Signs Temp Pulse Resp BP Pulse Ox 98.0 F 70 20 119/68 97 03/11/18 13:00 03/11/18 13:00 03/11/18 13:00 03/11/18 13:00 03/11/18 13:00 General: In no acute distress, sitting in chair, reading the newspaper. Neuro: Alert, pleasantly confused, non-focal. Labs: 03/11/18 05:30 03/11/18 05:30 Assessment. Elderly NH resident, baseline dementia, admitted with non-STEMI, conservative monanagement. Reported history of MPN, with neutrophilia and thrombocytosis on admission, now improved. Anticoagulation for ACS indication - no known history of venous thrombosis. On discharge risk:benefit analysis warranted, as patient appears to be a falling risk. For hematological indication, baby ASA alone would be sufficient, together with control of platelet count.
--- NOTE | 2018-03-11 15:56 | PN ---
Progress Note, Physician History of Present Illness: Awake, alert Supine in bed No complaints Appears comfortable on nasal cannula O2 - Current Medication List Current Medications: Active Medications Amlodipine Besylate (Norvasc -) 5 mg PO DAILY [facility] Last Admin: 03/11/18 11:34 Dose: 5 mg Ascorbic Acid (Vitamin C -) 500 mg PO DAILY [facility] Last Admin: 03/11/18 11:00 Dose: 500 mg Aspirin (Asa -) 325 mg PO DAILY [facility] Last Admin: 03/11/18 11:33 Dose: 325 mg Atorvastatin Calcium (Lipitor -) 80 mg PO HS [facility] Last Admin: 03/10/18 22:01 Dose: 80 mg Clopidogrel Bisulfate (Plavix -) 75 mg PO DAILY [facility] Last Admin: 03/11/18 11:34 Dose: 75 mg Heparin Sodium (Porcine) (Heparin -) 1,000 unit IVPUSH PRN PRN PRN Reason: Heparin Last Admin: 03/11/18 14:55 Dose: 1,000 unit Heparin Sodium (Porcine) (Heparin -) 5,000 unit IVPUSH PRN PRN PRN Reason: Heparin Hydroxyurea (Hydrea -) 500 mg PO DAILY [facility] Last Admin: 03/11/18 11:34 Dose: 500 mg Heparin Sodium (Porcine) 25, (000 unit/ Sodium Chloride) 500 mls @ 16 mls/hr IV TITR [facility]; Protocol Last Admin: 03/11/18 11:33 Dose: 700 unit/hr, 14 mls/hr Ceftriaxone Sodium 1 gm/ (Dextrose) 50 mls @ 100 mls/hr IVPB DAILY [facility]; Protocol Last Admin: 03/11/18 11:35 Dose: 100 mls/hr Insulin Aspart (Novolog Vial Sliding Scale -) 1 vial SQ ACHS [facility]; Protocol Last Admin: 03/11/18 12:39 Dose: Not Given Levothyroxine Sodium (Synthroid -) 12.5 mcg PO DAILY@0700 [facility] Last Admin: 03/11/18 06:34 Dose: 12.5 mcg Losartan Potassium (Cozaar -) 100 mg PO DAILY [facility] Last Admin: 03/11/18 11:34 Dose: 100 mg Metoprolol Succinate (Toprol Xl -) 50 mg PO DAILY [facility] Last Admin: 03/11/18 11:00 Dose: 50 mg Mirtazapine (Remeron -) 7.5 mg PO HS [facility] Last Admin: 03/10/18 22:01 Dose: 7.5 mg Multivitamins/Minerals/Vitamin C (Tab-A-Vit -) 1 tab PO DAILY [facility] Last Admin: 03/11/18 11:35 Dose: 1 tab Petrolatum (Sensi-Care Protective Ointment) 1 applic TP BID [facility] Last Admin: 03/11/18 14:50 Dose: Not Given - Objective Vital Signs: Vital Signs Temperature 98.0 F 03/11/18 13:00 Pulse Rate 70 03/11/18 13:00 Respiratory Rate 20 03/11/18 13:00 Blood Pressure 119/68 03/11/18 13:00 O2 Sat by Pulse Oximetry (%) 97 03/11/18 13:00 Constitutional: Yes: No Distress Eyes: Yes: Conjunctiva Clear Cardiovascular: Yes: Regular Rate and Rhythm, S1, S2 Respiratory: Yes: Diminished Gastrointestinal: Yes: Normal Bowel Sounds, Soft. No: Tenderness Labs: CBC, BMP 03/11/18 05:30 03/11/18 05:30 INR, PTT INR 1.11 (0.83-1.09) H 03/08/18 19:05 Assessment/Plan CHF NSTEMI ? Pneumonia Continue ceftriaxone D/C zithromax
[2018-03-11] MEDS: MIRTAZAPINE 15 MG TABLET (FP) PO SCH (21:42)
[2018-03-11] MEDS: ATORVASTATIN CA 80 MG TABLET (FP) PO SCH (21:43)
[2018-03-12 06:43] LABS: HEMATOCRIT 34.4 % (32.4-45.2); HEMOGLOBIN 11.4 GM/dL (10.7-15.3); MCH 34.2 pg (25.7-33.7); MEAN CELL VOLUME 103.4 fl (80-96); MEAN PLT VOLUME 7.9 fl (7.5-11.1); PLATELET COUNT 445 K/MM3 (134-434); RBC 3.33 M/mm3 (3.60-5.2); RDW 14.4 % (11.6-15.6)
[2018-03-12] MEDS: INSULIN SLIDING SCALE (NOVOLOG) 1 VIAL SQ SCH ×2 (07:03→11:35)
[2018-03-12] MEDS: LEVOTHYROXINE NA 25 MCG TABLET (FP) PO SCH (07:04)
[2018-03-12] MEDS ORDERED: ASPIRIN 81 MG CHEWABLE TABLETS PO SCH (09:01)
--- NOTE | 2018-03-12 09:02 | PN ---
Progress Note, Physician Chief Complaint: SD History of Present Illness: no sob no cp no palpitations, syncope - Current Medication List Current Medications: Active Medications Amlodipine Besylate (Norvasc -) 5 mg PO DAILY [facility] Last Admin: 03/11/18 11:34 Dose: 5 mg Ascorbic Acid (Vitamin C -) 500 mg PO DAILY [facility] Last Admin: 03/11/18 11:00 Dose: 500 mg Aspirin (Asa -) 325 mg PO DAILY [facility] Last Admin: 03/11/18 11:33 Dose: 325 mg Atorvastatin Calcium (Lipitor -) 80 mg PO HS [facility] Last Admin: 03/11/18 21:43 Dose: 80 mg Clopidogrel Bisulfate (Plavix -) 75 mg PO DAILY [facility] Last Admin: 03/11/18 11:34 Dose: 75 mg Heparin Sodium (Porcine) (Heparin -) 1,000 unit IVPUSH PRN PRN PRN Reason: Heparin Last Admin: 03/11/18 14:55 Dose: 1,000 unit Heparin Sodium (Porcine) (Heparin -) 5,000 unit IVPUSH PRN PRN PRN Reason: Heparin Hydroxyurea (Hydrea -) 500 mg PO DAILY [facility] Last Admin: 03/11/18 11:34 Dose: 500 mg Heparin Sodium (Porcine) 25, (000 unit/ Sodium Chloride) 500 mls @ 16 mls/hr IV TITR [facility]; Protocol Last Admin: 03/11/18 11:33 Dose: 700 unit/hr, 14 mls/hr Ceftriaxone Sodium 1 gm/ (Dextrose) 50 mls @ 100 mls/hr IVPB DAILY [facility]; Protocol Last Admin: 03/11/18 11:35 Dose: 100 mls/hr Insulin Aspart (Novolog Vial Sliding Scale -) 1 vial SQ ACHS [facility]; Protocol Last Admin: 03/12/18 07:03 Dose: Not Given Levothyroxine Sodium (Synthroid -) 12.5 mcg PO DAILY@0700 [facility] Last Admin: 03/12/18 07:04 Dose: 12.5 mcg Lisinopril (Prinivil) 2.5 mg PO DAILY [facility] Losartan Potassium (Cozaar -) 100 mg PO DAILY [facility] Last Admin: 03/11/18 11:34 Dose: 100 mg Metoprolol Succinate (Toprol Xl -) 50 mg PO DAILY [facility] Last Admin: 03/11/18 11:00 Dose: 50 mg Mirtazapine (Remeron -) 7.5 mg PO HS [facility] Last Admin: 03/11/18 21:42 Dose: 7.5 mg Multivitamins/Minerals/Vitamin C (Tab-A-Vit -) 1 tab PO DAILY [facility] Last Admin: 03/11/18 11:35 Dose: 1 tab Petrolatum (Sensi-Care Protective Ointment) 1 applic TP BID [facility] Last Admin: 03/11/18 21:43 Dose: Not Given - Objective Vital Signs: Vital Signs Temperature 98.1 F 03/12/18 05:00 Pulse Rate 77 03/12/18 05:00 Respiratory Rate 17 03/12/18 05:00 Blood Pressure 113/54 03/12/18 05:00 O2 Sat by Pulse Oximetry (%) 95 03/11/18 22:00 Constitutional: Yes: Well Nourished, No Distress, Calm Cardiovascular: Yes: Regular Rate and Rhythm, S1, S2. No: JVD, Gallop, Murmur Respiratory: Yes: Regular, Rales (L base). No: Accessory Muscle Use, Wheezes Extremities: No: Cold Edema: No Neurological: Yes: Alert, Oriented Psychiatric: No: Agitated Labs: CBC, BMP 03/12/18 05:30 03/11/18 05:30 INR, PTT INR 1.11 (0.83-1.09) H 03/08/18 19:05 Assessment/Plan Echo 03/13: EF 30-35%; AK of AW, mid-, apical AW and apical IW. nl RV. mild LAE. mild MR/TR. RVSP 30-40. ECGs: as described below tele: NSR, intermittent V-pacing NSTEMI: -sx of acute sob in [place], with acute chf on presentation--sx's resolved with one dose lasix in ER -ecg with pathological q waves in V1 and V2, with mild ST elevation at baseline here--dynamic worsening of ST elevation here with depressions in diffuse leads in ER, which returned to baseline -peak trop 2.5, trended down -remains asymptomatic since initial event -case was d/w'd interventionalist who reviewed ekgs and agreed this is not c/w STEMI, rather NSTEMI -invasive tx approach with cath is associated with certain limitations, including increased risk of bleed in elderly on prolonged DAPT; hi likelihood of diffuse, severe CAD not optimal for PCI approach and pt at extremely hi risk for CABG; signif increased procedural risk given severely reduced LVEF. -issues including R/B of cath were discussed with son (dr potter) who wished to pursue med mgmt while we observe her for recurrent sx's or other evidence of ischemia -03/12: d/c heparin. continue aspirin and plavix--would continue plavix for 6-12 months post-SD if tolerating, follow H/H closely as outpt. -decrease atorvastatin to 40 qd -continue toprol 50 qd (for chf as well). -should f/u with us in office in 3-4 weeks acute syst chf: -acute ischemic pulm edema picture (bilat alveolar infiltrates, no effusions on cxr). BNP 27K -prior LV fxn unknown. echo here severely reduced EF -received iv lasix x 2 on DOA, sob resolved -appears euvolemic--holding lasix. faint rales L base likely ATX vs residual small effusion/chf but she has no sob at all and no JVD/edema--would not diurese her unless + sx's or phys exam changes. -cont toprol 50 qd. -has not been receiving losartan here (though ordered), on 100 qd at home -bp's stable, soft. d/c amlodipine, start losartan 50 qd. -monitor lytes--K/Mg > 4/2 -pt not a good candidate for primary prevention ICD per society guidelines, given very advanced age and dementia comorbidity makes her unlikely to gain benefit afib: -in sr here, cont bb -not on ac due to falls in past, has been on asa ppm: -outpt f/u as doing in [place] OK FOR TRANSFER BACK TO [place] FROM [facility] P.O.V. (will d/c telemetry)
[2018-03-12] MEDS ORDERED: HEPARIN NA (PORCINE) 5,000 UNITS/ML 1ML VIAL SQ SCH (10:00)
[2018-03-12] MEDS ORDERED: LISINOPRIL 5 MG TABLET (FP) PO SCH (10:00)
[2018-03-12] MEDS ORDERED: LOSARTAN POTASSIUM 50 MG TABLET (FP) PO SCH (10:00)
[2018-03-12] MEDS ORDERED: cefTRIAXone SODIUM 1 GM VIAL ONE (10:14)
[2018-03-12] MEDS: HYDROXYUREA 500 MG CAPSULE PO SCH (10:36)
[2018-03-12] MEDS: MULTIVITAMINS (DAILY MVI) TABLET (FP) PO SCH (10:36)
[2018-03-12] MEDS: CLOPIDOGREL BISULFATE 75 MG TABLET (FP) PO SCH (10:36)
[2018-03-12] MEDS: ASCORBIC ACID 500 MG TABLET (FP) PO SCH (10:37)
[2018-03-12] MEDS: CEFTRIAXONE 1 GM in DEXTROSE 5%-WATER - 50 ML IVPB SCH (10:37)
--- NOTE | 2018-03-12 12:28 | DS ---
Physical Examination Vital Signs: Vital Signs Temperature 98.1 F 03/12/18 05:00 Pulse Rate 77 03/12/18 05:00 Respiratory Rate 17 03/12/18 05:00 Blood Pressure 113/54 03/12/18 05:00 O2 Sat by Pulse Oximetry (%) 95 03/11/18 22:00 Findings/Remarks: feels well . no complains denies cp/sob. afebrile cardiology f/u noted/ appreciated/ discussed -- cleared for d/c -- asa/ plavix wbc also trending down Constitutional: Yes: No Distress, Calm Eyes: Yes: Conjunctiva Clear Neck: Yes: Supple Cardiovascular: Yes: Regular Rate and Rhythm Respiratory: Yes: CTA Bilaterally Gastrointestinal: Yes: Normal Bowel Sounds, Soft Edema: No Labs: CBC, BMP 03/12/18 05:30 03/11/18 05:30 Discharge Summary Reason For Visit: SHORTNESS OF BREATH, PNEUMONIA Current Active Problems CHF (congestive heart failure) (Acute) Leukocytosis (Acute) NSTEMI (non-ST elevated myocardial infarction) (Acute) Pneumonia (Acute) Polycythemia vera (Acute) Hospital Course: admitted for NSTMI/ Leukocytosis pe ruled out Medical management for NSTMI-- Treated with asa/plavix/ heparin cardiology followed Also treated with abx cultures -ve now stable for d/c will send on coftin discussed with i/d also meds reconcilled discussed with nursing staff also as well as caser time spend 35 min in examining/ documenting and coordating discharge. Condition: Improved - Instructions Referrals: Steff Nation MD [Primary Care Provider] - [facility] - Home Medications Comprehensive Discharge Medication List: Ambulatory Orders Acetaminophen 650 mg PO QID PRN 03/08/18 Aspirin 81 mg PO DAILY 03/08/18 Cholecalciferol (Vitamin D3) [Vitamin D3] 1,000 unit PO DAILY 03/08/18 Levothyroxine [Synthroid -] 12.5 mcg PO DAILY 03/08/18 Lorazepam 0.5 mg PO BID 03/08/18 Mirtazapine 7.5 mg PO HS 03/08/18 Multivitamin [One Daily] 1 tab PO DAILY 03/08/18 Vit A/Vitamin D3/E/Aloe V/Zinc [Periguard Ointment] 100 gm TP BID 03/08/18 Zolpidem Tartrate [Ambien] 5 mg PO HS 03/08/18 Hydroxyurea [Hydrea 500Mg Capsule -] 500 mg PO DAILY 03/09/18 Aspirin [ASA -] 81 mg PO DAILY tab.chew 03/12/18 Atorvastatin Ca [Lipitor] 80 mg PO HS tablet 03/12/18 Cefuroxime Axetil [Ceftin -] 500 mg PO Q12H 3 Days #6 tablet 03/12/18 Clopidogrel Bisulfate [Plavix -] 75 mg PO DAILY tablet 03/12/18 Heparin - 5,000 unit SQ BID vial 03/12/18 Insulin Sliding Scale [Novolog Vial Sliding Scale -] 1 vial SQ ACHS units 03/12 Lisinopril [Prinivil] 2.5 mg PO DAILY tablet 03/12/18 Metoprolol Succinate [Toprol XL -] 50 mg PO DAILY tab.sr.24h 03/12/18
[2018-03-12] MEDS: ZINC OXIDE/PETROLATUM,WHITE 1 APPLIC OINT...G. TP SCH (12:35)
[2018-03-12 14:34] VITALS: BP 112/55; PULSE 69; TEMP 97.6
[2018-03-12] MEDS ORDERED: ATORVASTATIN CA 40 MG TABLET (FP) PO SCH (22:00)
== END 2018-03-12 17:21 | DRG 280 ==
LOC: JER 18:53 → JERBED 21:37 → J4W 03-09 14:15
PROVIDERS: ADMIT Internal Medicine; ATTEND Internal Medicine
PROC: 5A09357 Assistance with Respiratory Ventilation, Less than 24 Consecutive Hours, Continuous Positive Airway Pressure (ICD-10-PCS; principal; 2018-03-08)
DX: I21.4 Non-ST elevation (NSTEMI) myocardial infarction (principal); I50.21 Acute systolic (congestive) heart failure; J18.9 Pneumonia, unspecified organism; D62 Acute posthemorrhagic anemia; L93.0 Discoid lupus erythematosus; I10 Essential (primary) hypertension; E03.9 Hypothyroidism, unspecified; Z86.73 Personal history of transient ischemic attack (TIA), and cerebral infarction without residual deficits; Z66 Do not resuscitate; D45 Polycythemia vera; I48.0 Paroxysmal atrial fibrillation; I49.3 Ventricular premature depolarization; F03.90 Unspecified dementia, unspecified severity, without behavioral disturbance, psychotic disturbance, mood disturbance, and anxiety; G47.00 Insomnia, unspecified; M81.0 Age-related osteoporosis without current pathological fracture; Z95.0 Presence of cardiac pacemaker; E87.5 Hyperkalemia; R09.02 Hypoxemia; Z91.81 History of falling; Z85.038 Personal history of other malignant neoplasm of large intestine
CPT/HCPCS: 36415; 36600; 71045-TC-FY; 71275-TC; 80048; 80053; 81003; 82375; 82550; 82803; 82962; 83036; 83050; 83605; 83735; 83880; 84100; 84132; 84484; 85025; 85027; 85610; 85730; 87040; 87086; 87899; 93005; 93010; 93306-TC; 93970-TC; 94660; 99285-25; J1644; J7620; J8999

== ENCOUNTER 2018-03-17 11:31 | Emergency (ER) | payer OTHER, BC ==
--- NOTE | 2018-03-17 11:51 | PDOC ---
History of Present Illness - General Chief Complaint: Cardiac Arrest Stated Complaint: CARDIAC ARREST Time Seen by Provider: 03/17/18 11:42 - History of Present Illness Initial Comments: 03/17/18 11:44 88 F with h/o CAD, Afib, COPD presenting from [facility] in cardiac arrest. Per EMS, initial call was placed for respiratory distress. At time of their arrival, pt was breathing agonally and unresponsive. EMS was unable to palpate a pulse and ACLS protocol was initiated. Pt was NOT intubated due to having an active DNI order, but no DNR order. Pt arrived to ED with chest compressions in progress, receiving rescue breaths via BVM. Pt was given epi x 2 in the field. IO placed in L tibia. In the ED, pt was placed on monitor and vascular access was obtained. Still with no pulse. Pacer spikes on monitor but no organized rhythm. Pt was found to have diminished breath sounds on the left. Needle decompression of L lung performed for possible pneumothorax. Pt was given epi, bicarb, calcium, and D50. 4 cycles of CPR were performed, and pt was persistently in asystole with no cardiac movement on bedside US. Pt arrived in ER with no paperwork from [facility]. Confirmation of pt's DNI status was made via phone call to [facility]. Nursing supervisor stitching department was unable to fax over the paperwork but verbally confirmed DNI. Attempted to call next of kin, Alex Uribe, with no response. Pt pronounced at 11:42 AM. Past History - Past Medical History Allergies/Adverse Reactions: Allergies Allergy/AdvReac Type Severity Reaction Status Date / Time No Known Allergies Allergy Verified 03/17/18 11:48 Home Medications: Ambulatory Orders Acetaminophen 650 mg PO QID PRN 03/08/18 Aspirin 81 mg PO DAILY 03/08/18 Cholecalciferol (Vitamin D3) [Vitamin D3] 1,000 unit PO DAILY 03/08/18 Levothyroxine [Synthroid -] 12.5 mcg PO DAILY 03/08/18 Lorazepam 0.5 mg PO BID 03/08/18 Mirtazapine 7.5 mg PO HS 03/08/18 Multivitamin [One Daily] 1 tab PO DAILY 03/08/18 Vit A/Vitamin D3/E/Aloe V/Zinc [Periguard Ointment] 100 gm TP BID 03/08/18 Zolpidem Tartrate [Ambien] 5 mg PO HS 03/08/18 Hydroxyurea [Hydrea 500Mg Capsule -] 500 mg PO DAILY 03/09/18 Aspirin [ASA -] 81 mg PO DAILY tab.chew 03/12/18 Atorvastatin Ca [Lipitor] 80 mg PO HS tablet 03/12/18 Cefuroxime Axetil [Ceftin -] 500 mg PO Q12H 3 Days #6 tablet 03/12/18 Clopidogrel Bisulfate [Plavix -] 75 mg PO DAILY tablet 03/12/18 Heparin - 5,000 unit SQ BID vial 03/12/18 Insulin Sliding Scale [Novolog Vial Sliding Scale -] 1 vial SQ ACHS units 03/12 Lisinopril [Prinivil] 2.5 mg PO DAILY tablet 03/12/18 Metoprolol Succinate [Toprol XL -] 50 mg PO DAILY tab.sr.24h 03/12/18 Cardiac Disorders: Yes (a fib, pacemaker) CVA: Yes COPD: Yes Disorders: Yes (uti) HTN: Yes Thyroid Disease: Yes - Suicide/Smoking/Psychosocial Hx Smoking History: Unknown if ever smoked Review of Systems - Review of Systems Able to Perform ROS?: No *Physical Exam - Physical Exam Comments: 03/17/18 11:51 "GENERAL: Unresponsive HEAD: No signs of trauma EYES: Pupils fixed + dilated ENT: moist mucosa NECK: no stepoffs, no lymphadenopathy, JVD, or masses LUNGS: Diminished breath sounds on L HEART: asystole ABDOMEN: Soft, nondistended NEUROLOGICAL: No spontaneous movement Medical Decision Making - Critical Care Time Total Critical Care Time (minutes): 45 Critical Care Statement: The care of this patient involved high complexity decision making to prevent further life threatening deterioration of the patient 's condition and/or to evaluate & treat vital organ system(s) failure or risk of failure. - Medical Decision Making 03/17/18 11:56 88 F presenting to ED in cardiac arrest. Pt has h/o COPD and was noted to be in respiratory distress prior to arrest. Suspect respiratory failure as cause of cardiac arrest. 03/17/18 13:54 I spoke with pt's son, Alex Uribe, and informed him of pt's . He states he is coming to the hospital. *DC/Admit/Observation/Transfer Diagnosis at time of Disposition: Cardiac arrest - Discharge Dispostion Disposition: - Referrals - Patient Instructions - Post Discharge Activity - Attestations Physician Attestion: 03/17/18 12:00 I, Dr. Armando Gonzalez MD, attest that this document has been prepared under my direction and personally reviewed by me in its entirety. I further attest, that it accurately reflects all work, treatment, procedures and medical decision -making performed by me.
[2018-03-17 12:00] VITALS: BP 00/00; BMI 18.8
== END 2018-03-17 14:28 | disposition expired ==
LOC: JER 11:31
PROC: 5A02216 Assistance with Cardiac Output using Other Pump, Continuous (ICD-10-PCS; principal; 2018-03-17)
PROC: 0BJQ3ZZ Inspection of Pleura, Percutaneous Approach (ICD-10-PCS; 2018-03-17)
DX: I46.9 Cardiac arrest, cause unspecified (principal); R06.03 Acute respiratory distress; I48.91 Unspecified atrial fibrillation; Z79.01 Long term (current) use of anticoagulants; J44.9 Chronic obstructive pulmonary disease, unspecified; E03.9 Hypothyroidism, unspecified; N39.0 Urinary tract infection, site not specified; Z86.73 Personal history of transient ischemic attack (TIA), and cerebral infarction without residual deficits; Z79.82 Long term (current) use of aspirin; Z95.0 Presence of cardiac pacemaker
CPT/HCPCS: 32554; 92950; 99285-25